=== PATIENT | female | born 1990 | race Caucasian/White ===

== ENCOUNTER 2016-06-08 09:07 | Inpatient (IN) | payer MEDICAID ==
--- NOTE | 2016-06-07 13:36 | PCM.PREANE ---
<Ari Liang - Last Filed: 06/07/16 13:34> Preanesthetic Assessment - ANESTHESIA/TRANSFUSION/FAMILY HX Anesthesia/Transfusion History: No Prior Transfusion(s), Prior Anesthesia (c section without problems under spinal. Teeth pulled under MAC. No history of GA. No famiy issues with GA.) Family History of Anesthesia Reaction: No - REVIEW OF SYSTEMS Constitutional: Reports: no symptoms CERTIFIED NURSE MIDWIFE: Reports: no symptoms Respiratory: Reports: no symptoms Cardiovascular: Reports: no symptoms GI: Reports: no symptoms Other: Reports: none - PHYSICAL ASSESSMENT Height: 5 ft 6 in Weight: 251 lb ASA Class: 2 - LAB Values: Laboratory Last Values WBC 8.50 K/uL (4.0-11.0) 06/08/16 09:31 RBC 4.47 M/uL (4.30-5.90) 06/08/16 09:31 Hgb 12.9 g/dL (12.0-16.0) 06/08/16 09:31 Hct 39.6 % (36.0-46.0) 06/08/16 09:31 MCV 88.6 fL (80.0-98.0) 06/08/16 09:31 MCH 28.9 pg (27.0-32.0) 06/08/16 09:31 MCHC 32.6 g/dL (31.0-37.0) 06/08/16 09:31 RDW Std Deviation 45.3 fl (28.0-62.0) 06/08/16 09:31 RDW Coeff of Omari 14 % (11.0-15.0) 06/08/16 09:31 Plt Count 179 K/uL (150-400) 06/08/16 09:31 MPV 11.80 fL (7.40-12.00) 06/08/16 09:31 Nucleated RBC % 0.0 /100WBC 06/08/16 09:31 Nucleated RBCs # 0 K/uL 06/08/16 09:31 Blood Type A POSITIVE 06/08/16 09:31 Antibody Screen NEGATIVE 06/08/16 09:31 - ALLERGIES Allergies/Adverse Reactions: Allergies Allergy/AdvReac Type Severity Reaction Status Date / Time amoxicillin Allergy Rash Verified 09/02/15 11:05 - ANESTHESIA PLAN Anesthesia Type Planned: general anesthesia, spinal - ACKNOWLEDGEMENTS Pt an appropriate candidate for the planned anesthesia: Yes Alternatives and risks of anesthesia discussed w pt/guardian: Yes Pt/Guardian understands and agree with anesthesia plan: Yes PreAnesthesia Questionnaire HEENT History: Reports: Other (see below) Other HEENT History: wears glasses/contacts Cardiovascular History: Reports: None Other Cardiovascular History: HX of "ENLARGED HEART AND FLUID ON LUNG" with previous Respiratory History: Reports: None Gastrointestinal History: Reports: GERD, Other (see below) Other Gastrointestinal History: occasional heartburn with Genitourinary History: Reports: None STUDENT SPECIALIST History: Reports: LMP (Approximate): Other OB/BYN History: & D/C Musculoskeletal History: Reports: Fracture Other Musculoskeletal History: hx of fx toe Neurological History: Reports: None Psychiatric History: Reports: None Endocrine/Metabolic History: Reports: Obesity/BMI 30+ Hematologic History: Reports: None Immunologic History: Reports: None Oncologic (Cancer) History: Reports: None Dermatologic History: Reports: None - Infectious Disease History Infectious Disease History: Reports: None - Past Surgical History Head Surgeries/Procedures: Reports: None HEENT Surgical History: Reports: Myringotomy w tube(s), Oral surgery Cardiovascular Surgical History: Reports: None Respiratory Surgical History: Reports: None GI Surgical History: Reports: None Female Surgical History: Reports: section (Hx of cardiomegaly and bilateral plueral effusions following previous c -section), D&C Endocrine Surgical History: Reports: None Neurological Surgical History: Reports: None Musculoskeletal Surgical History: Reports: None Oncologic Surgical History: Reports: None - SUBSTANCE USE Smoking Status *Q: Former Smoker Tobacco Use Within Last Twelve Months: No Second Hand Smoke Exposure: Yes Days Per Week of Alcohol Use: 0 Recreational Drug Use History: No - HOME MEDS Home Medications: Home Meds Vit W-Ca,Fe,FA(<1 mg) [ Vitamins] 1 tab PO DAILY 06/03/16 [ History] - CURRENT (IN HOUSE) MEDS Current Meds: Current Medications Citric Acid/Sodium Citrate (Bicitra Solution) 30 ml PO .ONCE NISSA Last Admin: 06/08/16 10:18 Dose: 30 ml Lactated Ringer's (Ringers, Lactated) 1,000 mls @ 500 mls/hr IV .BOLUS NISSA Last Admin: 06/08/16 11:15 Dose: 500 mls/hr Sodium Chloride (Saline Flush) 10 ml FLUSH ASDIRECTED PRN PRN Reason: Keep Vein Open Sodium Chloride (Saline Flush) 2.5 ml FLUSH ASDIRECTED PRN PRN Reason: Keep Vein Open Discontinued Medications Cefazolin Sodium/Dextrose 2 gm (/ Premix) 50 mls @ 100 mls/hr IV ONETIME ONE Stop: 06/08/16 05:29 Morphine Sulfate (Duramorph Pf) Confirm Administered Dose 10 mg .ROUTE .STK-MED ONE Stop: 06/08/16 08:50 Oxytocin (Pitocin) Confirm Administered Dose 20 unit .ROUTE .STK-MED ONE Stop: 06/08/16 08:50 <Rehana Connors - Last Filed: 06/08/16 11:41> Preanesthetic Assessment - ANESTHESIA/TRANSFUSION/FAMILY HX Anesthesia/Transfusion History: No Prior Transfusion(s), Prior Anesthesia Type of Anesthesia Reaction: Reports: Other (see below) (Pt reports having cardiomegaly and bilateral pleural effusions s/p section. Treated with Lasix and resolved. No further symptoms or workup.) Family History of Anesthesia Reaction: No - REVIEW OF SYSTEMS Constitutional: Reports: no symptoms CERTIFIED NURSE MIDWIFE: Reports: no symptoms Respiratory: Reports: no symptoms Cardiovascular: Reports: no symptoms GI: Reports: no symptoms Other: Reports: none - PHYSICAL ASSESSMENT NPO Status Date: 06/07/16 NPO Status Time: 23:00 ASA Class: 2 Mental Status: alert & oriented x3 Airway Class: Mallampati = 2 Dentition: Reports: normal dentition Thyro-Mental Finger Breadths: 3 Mouth Opening Finger Breadths: 3 ROM/Head Extension: full Respiratory Status: lungs clear to auscultation bilaterally Cardiovascular Status: regular rate & rhythm, normal S1, S2, no murmur, blood pressure WNL - BLOOD Blood Available: Yes Product(s) Available: PRBC - ANESTHESIA PLAN Anesthesia Type Planned: general anesthesia, spinal - ACKNOWLEDGEMENTS Pt an appropriate candidate for the planned anesthesia: Yes Alternatives and risks of anesthesia discussed w pt/guardian: Yes Pt/Guardian understands and agree with anesthesia plan: Yes PreAnesthesia Questionnaire Cardiovascular History: Reports: Heart Failure (with previous pregnancey and c section) <Bin Buchanan - Last Filed: 06/08/16 11:59> Preanesthetic Assessment - ANESTHESIA/TRANSFUSION/FAMILY HX Anesthesia/Transfusion History: No Prior Transfusion(s), Prior Anesthesia Type of Anesthesia Reaction: Reports: Other (see below) Family History of Anesthesia Reaction: No - REVIEW OF SYSTEMS Constitutional: Reports: no symptoms CERTIFIED NURSE MIDWIFE: Reports: no symptoms Respiratory: Reports: no symptoms Cardiovascular: Reports: no symptoms (episode of post delivery (prior 5 yr ago) cardiopulmonary episode resolved with lasix tx) GI: Reports: no symptoms Other: Reports: none - PHYSICAL ASSESSMENT ASA Class: 2 Mental Status: alert & oriented x3 Airway Class: Mallampati = 2 Dentition: Reports: normal dentition - BLOOD Blood Available: Yes Product(s) Available: PRBC - ANESTHESIA PLAN Medication Ordered: Antacids (treated on arrival today and now preop) Anesthesia Type Planned: spinal - ACKNOWLEDGEMENTS Pt an appropriate candidate for the planned anesthesia: Yes Alternatives and risks of anesthesia discussed w pt/guardian: Yes Pt/Guardian understands and agree with anesthesia plan: Yes
[~2016-06-08 09:07] MED LIST: Citric Acid/Sodium Citrate Solution 30 ML Cup PO SCH; Morphine PF 10 MG/10 ML SDV ONE; Oxytocin 10 Units/1 ML SDV ONE; Sodium Chloride 0.9% 10 ML Syringe FLUSH PRN; Sodium Chloride 0.9% 2.5 ML Syringe FLUSH PRN; ceFAZolin 2 GM in Premix Bag 1 BAG IV ONE
[2016-06-08] MEDS: Lactated Ringers 1,000 ML IV SCH ×2 (09:33→11:15)
[2016-06-08] MEDS ORDERED: Phenylephrine/Normal Saline 100 MCG/ML 10 ML Syringe ONE (12:11)
[2016-06-08] MEDS ORDERED: ePHEDrine 50 MG/ML SDV ONE (12:11)
[2016-06-08] MEDS ORDERED: Phenylephrine 1% 10 MG/ML SDV ONE (12:11)
[2016-06-08] MEDS ORDERED: Ondansetron 4 MG/2 ML SDV ONE (12:39)
[2016-06-08] MEDS ORDERED: diphenhydrAMINE 50 MG/ML SDV IVPUSH PRN ×2 (12:41→12:54)
[2016-06-08] MEDS ORDERED: Nalbuphine 10 MG/1 ML Vial IVPUSH PRN (12:41)
[2016-06-08] MEDS ORDERED: Naloxone 0.4 MG/ML Syringe IVPUSH PRN (12:41)
[2016-06-08] MEDS ORDERED: fentaNYL 100 MCG/2 ML SDV IVPUSH PRN (12:42)
[2016-06-08] MEDS ORDERED: Octyl 2-Cyanoacrylate 1 Tube ONE (12:46)
[2016-06-08] MEDS ORDERED: Simethicone 80 MG Tab.Chew PO PRN (12:54)
[2016-06-08] MEDS ORDERED: Bisacodyl 10 MG Supp RECTAL PRN (12:54)
[2016-06-08] MEDS ORDERED: Aluminum Hydroxide/Magnesium Hydroxide/Simethicone Susp 30 ML Cup PO PRN (12:54)
[2016-06-08] MEDS ORDERED: Lanolin 100% Cream 7 GM Tube TOP PRN (12:54)
[2016-06-08] MEDS ORDERED: Ondansetron 4 MG/2 ML SDV IV PRN (12:54)
[2016-06-08] MEDS ORDERED: Lactated Ringers 1,000 ML IV SCH (13:00)
--- NOTE | 2016-06-08 13:04 | PCM.OPNOTE ---
- General Post-Op/Procedure Note Date of Surgery/Procedure: 06/08/16 Operative Procedure(s): Repeat LTCS Findings: Viable male APGARS 7, 9 weight 4010 gm. Intact placenta with 3V cord. Nuchal cord x 2. Pre Op Diagnosis: 39 week IUP. Previous c section--desires repeat Post-Op Diagnosis: same Anesthesia Technique: Spinal Primary Surgeon: Maura Davis Fluid Replacement, Intraop: 1,000 EBL in mLs: 700 Condition: Stable Free Text/Narrative:: Dictation [id number]
[2016-06-08] MEDS: Ketorolac 30 MG/ML SDV IVPUSH SCH ×2 (13:18→18:44)
--- NOTE | 2016-06-08 13:29 | PCM.POSTAN ---
POST ANESTHESIA ASSESSMENT - MENTAL STATUS Mental Status: alert, oriented - RESPIRATORY Respiratory Status: respiratory rate WNL, airway patent, O2 saturation stable - CARDIOVASCULAR CV Status: pulse rate WNL, blood pressure stable - GASTROINTESTINAL GI Status: no symptoms - PAIN Pain Score: 0 - POST OP HYDRATION Hydration Status: adequate & stable
--- NOTE | 2016-06-08 20:12 | PCM48HPAN ---
Post Anesthesia Note - EVALUATION WITHIN 48HRS OF ANESTHETIC Vital Signs in Normal Range: Yes Patient Participated in Evaluation: Yes Respiratory Function Stable: Yes Airway Patent: Yes Cardiovascular Function Stable: Yes (Pt has diastolic murmur not noticed earlier today. Will monitor.) Hydration Status Stable: Yes Pain Control Satisfactory: Yes Nausea and Vomiting Control Satisfactory: Yes Mental Status Recovered: Yes - COMMENTS/OBSERVATIONS Free Text/Narrative:: Pt has full return of sensation and motor movement to lower extremities. Denies dyspnea. Lung sounds clear. Heart tones with diastolic murmur not heard this morning on exam. Will monitor for signs of heart failure due to course of post op events with prior c section. Nursing staff alerted to finding and they also report her urine output is slightly low. Pt also reports having itching from duramorph requiring RX treatment which has been effective.
[2016-06-08] MEDS: Docusate Sodium 100 MG Cap PO SCH (20:35)
--- NOTE | 2016-06-08 21:52 | OR ---
SURGEON: Maura Davis M.D. DATE OF PROCEDURE: 06/08/2016 PREOPERATIVE DIAGNOSES: 1. Thirty-nine week intrauterine . 2. Previous section, desires repeat. POSTOPERATIVE DIAGNOSES: 1. Thirty-nine week intrauterine . 2. Previous section, desires repeat. PROCEDURE: Repeat low transverse section. ESTIMATED BLOOD LOSS: 700 mL. FLUIDS: 1000 mL crystalloid. COMPLICATIONS: None known. ANESTHESIA: Spinal. FINDINGS: Viable male Score 7 at 1 minute, 9 at 5 minute. Weight of 4010 g. Intact placenta, 3-vessel cord. Normal appearing pelvis. Nuchal cord x2 reduced manually. DISPOSITION: The patient to PACU, stable. Infant to nursery. PROCEDURE IN DETAIL: Theresa is a 25-year-old G4, P0-1-0-2-1, at 39 weeks gestation, presents this morning for scheduled repeat delivery. Risks of procedure were discussed. Proper consent obtained. The patient was taken to the operating room, where she underwent spinal anesthesia. She was then placed in dorsal supine position with leftward tilt. SCDs to lower extremities. Graves to gravity. She was prepped and draped in the usual sterile fashion. Time-out was performed. The patient received prophylactic antibiotic and she was prepped and draped in a sterile fashion. Anesthesia was tested, found to be adequate. Previous Pfannenstiel scar was now excised. Subcutaneous tissue was incised down the level of the rectus fascia, which was incised in the midline and lateralized on either side sharply and bluntly. The superior aspect of fascia was tented up, dissected sharply and bluntly from underlying muscle. In a similar aspect, performed with the inferior aspect of the fascia. Rectus muscles were in midline. The peritoneum was tented upward and entered sharply. Peritoneum was now lateralized bluntly. Uterine position and position palpated. Self-retaining tractor now gently placed. Uterovesical reflection was visualized. Bladder flap created sharply and bluntly. Bladder was mobilized away from lower uterine segment. Low transverse hysterotomy was now performed. Uterine cavity was entered with the blunt end of the scalpel. The uterine hysterotomy was now lateralized bluntly. The artificial rupture of membranes was performed. Clear fluid was returned. The 's head was flexed and fundal pressure was applied. The 's head was delivered followed by anterior shoulder, posterior shoulder, remainder of the body without difficulty. The infant's oropharynx and nares bulb suctioned. Cord clamped x2 and cut after reducing a nuchal cord x2 manually. Infant was handed off to attending nursing staff. Cord arterial, cord venous, cord blood samples obtained. The placenta was now delivered. Uterine cavity was cleared of all clot and debris. Hysterotomy was repaired using 0 Vicryl in continuous running locked fashion, followed by a re-imbricating layer. There was an area oozing midline was replicated with [id number] suture. Hemostasis thereafter evident. Posterior aspect of the uterus inspected, no defects or hematomas found be forming. The region was well irrigated, suction dried. Tubes also appeared normal. Hysterotomy once again was found to be hemostatic. The self-retaining tractor now gently removed. Bladder blade was placed. Hysterotomy once again inspected, found to be hemostatic. The rectus muscles were now reapproximated using 0 Vicryl in inverted mattress suture technique. Anterior aspect of the muscle, posterior aspect the fascia closely inspected. Any areas of oozing were cauterized. The rectus fascia was reapproximated using 0 Vicryl in continuous running fashion beginning laterally on either side meeting in the midline. Subcutaneous tissue was well irrigated suction dried. Any areas of bleeding were cauterized. Skin edges reapproximated using 3-0 Vicryl in a John needle in subcuticular fashion, followed by Dermabond on the incision. Sponge, instrument, and needle counts were correct x3. The patient tolerated the procedure well overall. She will go to PACU in stable condition. Infant to nursery. XAVIER / TERESA /[id number]
[2016-06-09] MEDS: Ketorolac 30 MG/ML SDV IVPUSH SCH ×3 (00:03→12:35)
--- NOTE | 2016-06-09 08:45 | PCM.PNPP ---
- General Info Date of Service: 06/09/16 Functional Status: Reports: pain controlled, tolerating diet, ambulating, urinating - Review of Systems General: Denies: fever, weakness Pulmonary: Denies: shortness of breath Cardiovascular: Denies: chest pain, palpitations, lightheadedness Gastrointestinal: Denies: Nausea, Vomiting Genitourinary: Denies: flank pain Psychiatric: Reports: no symptoms - General Info Date of Service: 06/09/16 - Patient Data Vital Signs - most recent: Last Vital Signs Temp 36.9 C 06/09/16 04:00 Pulse 90 06/09/16 04:00 Resp 18 06/09/16 06:00 BP 120/68 06/09/16 04:00 Pulse Ox 96 06/09/16 06:00 Weight - most recent: 113.852 kg I&O - last 24 hours: Intake & Output 06/08/16 06/09/16 06/09/16 22:59 06:59 14:59 Intake Total 900 600 Output Total 150 600 Balance 750 0 Lab Results - last 24 hrs: Laboratory Results - last 24 hr 06/08/16 06/08/16 06/09/16 Range/Units 09:31 09:31 05:03 WBC 8.50 (4.0-11.0) K/uL RBC 4.47 (4.30-5.90) M/uL Hgb 12.9 11.0 L (12.0-16.0) g/dL Hct 39.6 33.3 L (36.0-46.0) % MCV 88.6 (80.0-98.0) fL MCH 28.9 (27.0-32.0) pg MCHC 32.6 (31.0-37.0) g/dL RDW Std Deviation 45.3 (28.0-62.0) fl RDW Coeff of Omari 14 (11.0-15.0) % Plt Count 179 (150-400) K/uL MPV 11.80 (7.40-12.00) fL Nucleated RBC % 0.0 /100WBC Nucleated RBCs # 0 K/uL Blood Type A POSITIVE Antibody Screen NEGATIVE Med Orders - Current: Current Medications Al Hydroxide/Mg Hydroxide (Mag-Al Plus) 30 ml PO Q8H PRN PRN Reason: Heartburn Bisacodyl (Dulcolax) 10 mg RECTAL .ONCE PRN PRN Reason: Constipation Citric Acid/Sodium Citrate (Bicitra Solution) 30 ml PO .ONCE [facility] Last Admin: 06/08/16 10:18 Dose: 30 ml Diphenhydramine HCl (Benadryl) 25 mg IVPUSH Q4H PRN PRN Reason: Itching Stop: 06/09/16 12:42 Last Admin: 06/08/16 15:00 Dose: 25 mg Diphenhydramine HCl (Benadryl) 25 mg IVPUSH Q6H PRN PRN Reason: Itching or Nausea Docusate Sodium (Colace) 100 mg PO BID [facility] Last Admin: 06/08/16 20:35 Dose: 100 mg Emollient Ointment (Lansinoh Hpa) 0 gm TOP ASDIRECTED PRN PRN Reason: Sore Nipples Fentanyl (Sublimaze) 25 - 50 mcg IVPUSH Q30M PRN PRN Reason: Pain Lactated Ringer's (Ringers, Lactated) 1,000 mls @ 500 mls/hr IV .BOLUS [facility] Last Admin: 06/08/16 11:15 Dose: 500 mls/hr Lactated Ringer's (Ringers, Lactated) 1,000 mls @ 125 mls/hr IV ASDIRECTED [facility] Last Admin: 06/08/16 16:15 Dose: 125 mls/hr Ibuprofen (Motrin) 800 mg PO Q8H PRN PRN Reason: mild pain or fever Ketorolac Tromethamine (Toradol) 30 mg IVPUSH Q6H [facility] Stop: 06/09/16 13:01 Last Admin: 06/09/16 06:03 Dose: 30 mg Nalbuphine HCl (Nubain) 5 mg IVPUSH Q3H PRN PRN Reason: Pruritis Stop: 06/09/16 12:42 Last Admin: 06/08/16 18:43 Dose: 5 mg Naloxone HCl (Narcan) 0.1 mg IVPUSH ONETIME PRN PRN Reason: Other Stop: 06/09/16 12:42 Ondansetron HCl (Zofran) 4 mg IV Q4H PRN PRN Reason: Nausea/Vomiting Oxycodone/Acetaminophen (Percocet 325-5 Mg) 1 - 2 tab PO Q6H PRN PRN Reason: Pain Stop: 03/01/17 14:00 Oxycodone/Acetaminophen (Percocet 325-5 Mg) 1 tab PO Q4H PRN PRN Reason: Pain (moderate 4-6) Oxycodone/Acetaminophen (Percocet 325-5 Mg) 2 tab PO Q4H PRN PRN Reason: Pain (moderate 4-6) Simethicone (Simethicone) 80 mg PO Q4H PRN PRN Reason: Gas Sodium Chloride (Saline Flush) 10 ml FLUSH ASDIRECTED PRN PRN Reason: Keep Vein Open Sodium Chloride (Saline Flush) 2.5 ml FLUSH ASDIRECTED PRN PRN Reason: Keep Vein Open Discontinued Medications Ephedrine Sulfate (Ephedrine Sulfate) Confirm Administered Dose 50 mg .ROUTE .STK-MED ONE Stop: 06/08/16 12:12 Cefazolin Sodium/Dextrose 2 gm (/ Premix) 50 mls @ 100 mls/hr IV ONETIME ONE Stop: 06/08/16 05:29 Morphine Sulfate (Duramorph Pf) Confirm Administered Dose 10 mg .ROUTE .STK-MED ONE Stop: 06/08/16 08:50 Octyl Cyanoacrylate (Dermabond Advance) Confirm Administered Dose 1 applic .ROUTE .STK-MED ONE Stop: 06/08/16 12:47 Ondansetron HCl (Zofran) Confirm Administered Dose 4 mg .ROUTE .STK-MED ONE Stop: 06/08/16 12:40 Oxytocin (Pitocin) Confirm Administered Dose 20 unit .ROUTE .STK-MED ONE Stop: 06/08/16 08:50 Phenylephrine HCl (Phenylephrine In Ns 100 Mcg/Ml) Confirm Administered Dose 1 mg .ROUTE .STK-MED ONE Stop: 06/08/16 12:12 Phenylephrine HCl (Alexis-Synephrine) Confirm Administered Dose 10 mg .ROUTE .STK- MED ONE Stop: 06/08/16 12:12 - Interaction Support Person: Significant Other - Recovery Exam Fundal Tone: Firm Fundal Level: 1 Fingerbreadths Below Umbilicus Fundal Placement: Midline Lochia Amount: Scant Lochia Color: Rubra/Red Perineum Description: Intact, Minimal Bruising/Swelling Episiotomy/Laceration: None Bladder Status: Indwelling Catheter in Place Urinary Elimination: Indwelling Catheter - Exam General: alert, oriented Lungs: Normal respiratory effort Cardiovascular: regular rate, regular rhythm Abdomen: bowel sounds present, soft. No: CVA tenderness Extremities: no calf tenderness Skin: warm, dry, intact Psy/Mental Status: alert, normal affect - Problem List & Annotations (1) delivery delivered SNOMED Code(s): 762176813 Code(s): O82 - ENCOUNTER FOR DELIVERY WITHOUT INDICATION Status: Acute Current Visit: Yes - Problem List Review Problem List Initiated/Reviewed/Updated: Yes - My Orders Last 24 Hours: My Active Orders 06/08/16 12:54 Patient Status [ADT] Routine Ambulate [RC] PER UNIT ROUTINE Antiembolic Devices [RC] PER UNIT ROUTINE Communication Order [RC] PER UNIT ROUTINE Communication Order [RC] PER UNIT ROUTINE Communication Order [RC] Per Unit Routine May Shower [RC] ASDIRECTED Notify Provider Intake and Out [RC] ASDIRECTED Notify Provider Vital Signs [RC] ASDIRECTED RT Incentive Spirometry [RC] Q2HWA Acetaminophen/oxyCODONE [Percocet 325-5 MG] 1 tab PO Q4H PRN Acetaminophen/oxyCODONE [Percocet 325-5 MG] 2 tab PO Q4H PRN Alum Hydrox/Mag Hydrox/Simeth [Mag-Al Plus] 30 ml PO Q8H PRN Bisacodyl [Dulcolax] 10 mg RECTAL .ONCE PRN Lanolin [Lansinoh HPA] See Dose Instructions TOP ASDIRECTED PRN Ondansetron [Zofran] 4 mg IV Q4H PRN Simethicone 80 mg PO Q4H PRN diphenhydrAMINE [Benadryl] 25 mg IVPUSH Q6H PRN Abdominal Binder [OM.PC] Routine Assess Lochia [WOMSER] Per Unit Routine Assess Uterine Involution [WOMSER] Per Unit Routine Breast Pump [WOMSER] Per Unit Routine Heat Therapy [OM.PC] Routine Ice Therapy [OM.PC] Routine Peripheral IV Discontinue [OM.PC] Routine Sequential Compression Device [OM.PC] Per Unit Routine 06/08/16 13:00 Ketorolac [Toradol] 30 mg IVPUSH Q6H Lactated Ringers [Ringers, Lactated] 1,000 ml IV ASDIRECTED 06/08/16 21:00 Docusate Sodium [Colace] 100 mg PO BID 06/08/16 Lunch Regular Diet [DIET] 06/09/16 20:00 Ibuprofen [Motrin] 800 mg PO Q8H PRN - Assessment Assessment:: POD 1 status post Repeat LTCS - Plan Plan:: patient is feeling well overall, has ambulated and voided. Lochia is dissipating. She denies chest pain or shortness of breath. Continue postoperative cares.
[2016-06-09] MEDS: Docusate Sodium 100 MG Cap PO SCH ×2 (09:27→20:14)
[2016-06-09] MEDS: Acetaminophen/oxyCODONE 325-5 MG Tab PO PRN ×4 (09:27→20:13)
[2016-06-09] MEDS: Ibuprofen 800 MG Tab PO PRN (18:25)
[2016-06-10] MEDS: Acetaminophen/oxyCODONE 325-5 MG Tab PO PRN ×3 (00:20→13:25)
[2016-06-10] MEDS: Ibuprofen 800 MG Tab PO PRN ×2 (05:48→12:07)
[2016-06-10 08:21] VITALS: BP 125/65
--- NOTE | 2016-06-10 08:43 | PCM.PNPP ---
- General Info Date of Service: 06/10/16 Functional Status: Reports: pain controlled, tolerating diet, ambulating, urinating - Review of Systems General: Denies: fever Pulmonary: Denies: shortness of breath Cardiovascular: Denies: chest pain, palpitations, lightheadedness Gastrointestinal: Denies: Nausea, Vomiting Genitourinary: Denies: flank pain Psychiatric: Reports: no symptoms - General Info Date of Service: 06/10/16 - Patient Data Vital Signs - most recent: Last Vital Signs Temp 37.1 C 06/10/16 08:00 Pulse 78 06/10/16 08:00 Resp 14 06/10/16 08:00 BP 125/65 06/10/16 08:00 Pulse Ox 99 06/10/16 08:00 Weight - most recent: 113.852 kg Med Orders - Current: Current Medications Al Hydroxide/Mg Hydroxide (Mag-Al Plus) 30 ml PO Q8H PRN PRN Reason: Heartburn Bisacodyl (Dulcolax) 10 mg RECTAL .ONCE PRN PRN Reason: Constipation Citric Acid/Sodium Citrate (Bicitra Solution) 30 ml PO .ONCE [facility] Last Admin: 06/08/16 10:18 Dose: 30 ml Diphenhydramine HCl (Benadryl) 25 mg IVPUSH Q6H PRN PRN Reason: Itching or Nausea Docusate Sodium (Colace) 100 mg PO BID [facility] Last Admin: 06/09/16 20:14 Dose: 100 mg Emollient Ointment (Lansinoh Hpa) 0 gm TOP ASDIRECTED PRN PRN Reason: Sore Nipples Fentanyl (Sublimaze) 25 - 50 mcg IVPUSH Q30M PRN PRN Reason: Pain Lactated Ringer's (Ringers, Lactated) 1,000 mls @ 500 mls/hr IV .BOLUS [facility] Last Admin: 06/08/16 11:15 Dose: 500 mls/hr Lactated Ringer's (Ringers, Lactated) 1,000 mls @ 125 mls/hr IV ASDIRECTED [facility] Last Admin: 06/08/16 16:15 Dose: 125 mls/hr Ibuprofen (Motrin) 800 mg PO Q8H PRN PRN Reason: mild pain or fever Last Admin: 06/10/16 05:48 Dose: 800 mg Ondansetron HCl (Zofran) 4 mg IV Q4H PRN PRN Reason: Nausea/Vomiting Oxycodone/Acetaminophen (Percocet 325-5 Mg) 1 - 2 tab PO Q6H PRN PRN Reason: Pain Stop: 06/10/16 14:00 Last Admin: 06/09/16 09:27 Dose: 2 tab Oxycodone/Acetaminophen (Percocet 325-5 Mg) 1 tab PO Q4H PRN PRN Reason: Pain (moderate 4-6) Last Admin: 06/09/16 20:13 Dose: 1 tab Oxycodone/Acetaminophen (Percocet 325-5 Mg) 2 tab PO Q4H PRN PRN Reason: Pain (moderate 4-6) Last Admin: 06/10/16 00:20 Dose: 2 tab Simethicone (Simethicone) 80 mg PO Q4H PRN PRN Reason: Gas Sodium Chloride (Saline Flush) 10 ml FLUSH ASDIRECTED PRN PRN Reason: Keep Vein Open Sodium Chloride (Saline Flush) 2.5 ml FLUSH ASDIRECTED PRN PRN Reason: Keep Vein Open Discontinued Medications Diphenhydramine HCl (Benadryl) 25 mg IVPUSH Q4H PRN PRN Reason: Itching Stop: 06/09/16 12:42 Last Admin: 06/08/16 15:00 Dose: 25 mg Ephedrine Sulfate (Ephedrine Sulfate) Confirm Administered Dose 50 mg .ROUTE .STK-MED ONE Stop: 06/08/16 12:12 Cefazolin Sodium/Dextrose 2 gm (/ Premix) 50 mls @ 100 mls/hr IV ONETIME ONE Stop: 06/08/16 05:29 Ketorolac Tromethamine (Toradol) 30 mg IVPUSH Q6H NISSA Stop: 06/09/16 13:01 Last Admin: 06/09/16 12:35 Dose: 30 mg Morphine Sulfate (Duramorph Pf) Confirm Administered Dose 10 mg .ROUTE .STK-MED ONE Stop: 06/08/16 08:50 Nalbuphine HCl (Nubain) 5 mg IVPUSH Q3H PRN PRN Reason: Pruritis Stop: 06/09/16 12:42 Last Admin: 06/08/16 18:43 Dose: 5 mg Naloxone HCl (Narcan) 0.1 mg IVPUSH ONETIME PRN PRN Reason: Other Stop: 06/09/16 12:42 Octyl Cyanoacrylate (Dermabond Advance) Confirm Administered Dose 1 applic .ROUTE .STK-MED ONE Stop: 06/08/16 12:47 Ondansetron HCl (Zofran) Confirm Administered Dose 4 mg .ROUTE .STK-MED ONE Stop: 06/08/16 12:40 Oxytocin (Pitocin) Confirm Administered Dose 20 unit .ROUTE .STK-MED ONE Stop: 06/08/16 08:50 Phenylephrine HCl (Phenylephrine In Ns 100 Mcg/Ml) Confirm Administered Dose 1 mg .ROUTE .STK-MED ONE Stop: 06/08/16 12:12 Phenylephrine HCl (Alexis-Synephrine) Confirm Administered Dose 10 mg .ROUTE .STK- MED ONE Stop: 06/08/16 12:12 - Interaction Support Person: Significant Other - Recovery Exam Fundal Tone: Firm Fundal Level: At Umbilicus Fundal Placement: Midline Lochia Amount: Scant Lochia Color: Rubra/Red Perineum Description: Intact, Minimal Bruising/Swelling Episiotomy/Laceration: None Bladder Status: Voiding Urinary Elimination: Voided - Exam General: alert, oriented Lungs: Normal respiratory effort Cardiovascular: regular rate, regular rhythm Abdomen: bowel sounds present, soft. No: rebound, guarding, CVA tenderness Extremities: no calf tenderness, edema (trace to 1+ pedal edema) Wound/Incisions: healing well, no drainage. No: erythema Psy/Mental Status: alert, normal affect - Problem List & Annotations (1) delivery delivered SNOMED Code(s): 599660058 Code(s): O82 - ENCOUNTER FOR DELIVERY WITHOUT INDICATION Status: Acute Current Visit: Yes - Problem List Review Problem List Initiated/Reviewed/Updated: Yes - My Orders Last 24 Hours: My Active Orders 06/09/16 20:00 Ibuprofen [Motrin] 800 mg PO Q8H PRN 06/10/16 08:40 Ready for Discharge [RC] PER UNIT ROUTINE - Assessment Assessment:: POD 2 status post Repeat LTCS - Plan Plan:: Vs remain stable. Patient is feeling well overall with minimal pedal swelling/ edema and no shortness of breath. Will send in some lasix in case swelling increases given events last . Patient would like to go home today. Discharge instructions reviewed. Infection and bleeding warnings reviewe. Follow up at [facility] 2 and 6 weeks. Discharge to home today.
[2016-06-10] MEDS: Docusate Sodium 100 MG Cap PO SCH (09:03)
== END 2016-06-10 13:35 | disposition home or self-care (01) | DRG 765 ==
LOC: MW.OB 09:07
PROVIDERS: ADMIT Obstetrics & Gynecology; ATTEND Obstetrics & Gynecology
PROC: 10D00Z1 Extraction of Products of Conception, Low, Open Approach (ICD-10-PCS; principal; 2016-06-08)
DX: O34.211 Maternal care for low transverse scar from previous cesarean delivery (principal); Z68.41 Body mass index [BMI] 40.0-44.9, adult; O99.214 Obesity complicating childbirth; E66.9 Obesity, unspecified; Z3A.39 39 weeks gestation of pregnancy; Z37.0 Single live birth
CPT/HCPCS: 01961; 36415; 59025; 85014; 85018; 85027; 86850; 86900; 86901; A9270-GY; J1200; J1885; J2270; J2300; J2370; J2405; J2590; J7120

== ENCOUNTER 2017-03-20 12:05 | Emergency (ER) | payer MEDICAID ==
[2017-03-20] MEDS ORDERED: Sodium Chloride 0.9% 1,000 ML IV ONE (12:28)
[2017-03-20] MEDS ORDERED: Sodium Chloride 0.9% 10 ML Syringe FLUSH PRN (12:28)
[2017-03-20] MEDS ORDERED: Sodium Chloride 0.9% 2.5 ML Syringe FLUSH PRN (12:28)
[2017-03-20] MEDS ORDERED: Ondansetron 4 MG/2 ML SDV IVPUSH ONE (12:48)
[2017-03-20] MEDS ORDERED: Morphine 2 MG/ML Syringe IVPUSH ONE (12:48)
[2017-03-20 13:11] LABS: CHLORIDE,CL 107 mmol/L (98-110); SODIUM,NA 140 mmol/L (136-146)
--- NOTE | 2017-03-20 13:15 | EDM.PDOC ---
ED HPI GENERAL MEDICAL PROBLEM - General Chief Complaint: Abdominal Pain Stated Complaint: ABDOMINAL PAIN/VOMITING Time Seen by Provider: 03/20/17 12:21 Source of Information: Reports: Patient History Limitations: Reports: No Limitations - History of Present Illness INITIAL COMMENTS - FREE TEXT/NARRATIVE: History of present illness: []Patient began having right lower abdominal and pelvic pain for 2 weeks that feel like period cramps. Patient states it was mild and she tolerated until 10: 30 this morning she had severe sharp pain while she was driving that made her pullover and vomit. She denies any vaginal bleeding, fevers, chills or diarrhea. Review of systems: As per history of present illness and below otherwise all systems reviewed and negative. Past medical history: As per history of present illness and as reviewed below otherwise noncontributory. Surgical history: As per history of present illness and as reviewed below otherwise noncontributory. Social history: No reported history of drug or alcohol abuse. Family history: As per history of present illness and as reviewed below otherwise noncontributory. Physical exam: General: Well developed, well nourished in NAD HEENT: Atraumatic, normocephalic, pupils reactive, negative for conjunctival pallor or scleral icterus, mucous membranes moist, throat clear, neck supple, nontender, trachea midline. Lungs: Clear to auscultation, breath sounds equal bilaterally, chest nontender. Heart: S1S2, regular, negative for clicks, rubs, or JVD. Abdomen: Soft, nondistended, nontender. Negative for masses or hepatosplenomegaly. Negative for costovertebral tenderness. Pelvis: Stable nontender. Genitourinary: Deferred. Rectal: Deferred. Extremities: Atraumatic, negative for cords or calf pain. Neurovascular unremarkable. Neuro: Awake, alert, oriented. Cranial nerves II through XII unremarkable. Cerebellum unremarkable. Motor and sensory unremarkable throughout. Exam nonfocal. Diagnostics: []CBC UA all negative pelvic ultrasound negative for ovarian cyst or bleeding. Therapeutics: []Zithromax Rocephin given Impression: []PID Plan: []Follow-up with [facility], Motrin and warm packs to abdomen return if symptoms worsen or change Definitive disposition and diagnosis as appropriate pending reevaluation and review of above. Right Lower Pelvic Pain Score (Numeric/FACES): 10 - Related Data Allergies Allergy/AdvReac Type Severity Reaction Status Date / Time amoxicillin Allergy Rash Verified 09/02/15 11:05 Home Meds: Home Meds . [No Known Home Meds] 03/20/17 [History] Past Medical History HEENT History: Reports: None Other HEENT History: wears glasses Cardiovascular History: Reports: Heart Failure (with previous pregnancey and c section) Other Cardiovascular History: HX OF "ENLARGED HEART AND FLUID ON LUNG" FROM 3 YEARS AGO, NO CURRENT TREATMENT Respiratory History: Reports: None Gastrointestinal History: Reports: None Other Gastrointestinal History: occasional heartburn Genitourinary History: Reports: None [employer] History: Reports: Other OB/BYN History: & D/C Musculoskeletal History: Reports: Fracture Other Musculoskeletal History: hx of fx toe Neurological History: Reports: None Psychiatric History: Reports: None Endocrine/Metabolic History: Reports: Obesity/BMI 30+ Hematologic History: Reports: None Immunologic History: Reports: None Oncologic (Cancer) History: Reports: None Dermatologic History: Reports: None - Infectious Disease History Infectious Disease History: Reports: None - Past Surgical History Head Surgeries/Procedures: Reports: None HEENT Surgical History: Reports: None Respiratory Surgical History: Reports: None Female Surgical History: Reports: Section, D&C Endocrine Surgical History: Reports: None Neurological Surgical History: Reports: None Musculoskeletal Surgical History: Reports: None Oncologic Surgical History: Reports: None Social & Family History - Family History Family Medical History: Noncontributory - Tobacco Use Smoking Status *Q: Never Smoker Years of Tobacco use: 5 Packs/Tins Daily: 0.2 Used Tobacco, but Quit: Yes Month Tobacco Last Used: june 2011 Second Hand Smoke Exposure: Yes - Caffeine Use Caffeine Use: Reports: Coffee, Energy Drinks - Alcohol Use Days Per Week of Alcohol Use: 0 - Recreational Drug Use Recreational Drug Use: No Drug Use in Last 12 Months: No ED ROS GENERAL - Review of Systems Review Of Systems: See Below (See history of present illness) ED EXAM, GI/ABD - Physical Exam Exam: See Below (See history of present illness) Course - Vital Signs Last Recorded V/S: Last Vital Signs Temp 97.5 F 03/20/17 12:12 Pulse 81 03/20/17 12:12 Resp 22 H 03/20/17 12:12 BP 110/66 03/20/17 12:12 Pulse Ox 99 03/20/17 12:12 - Orders/Labs/Meds Orders: Active Orders 24 hr Category Date Time Status Pelvis Non OB Comp [US] Stat Exams 03/20/17 13:24 Taken Sodium Chloride 0.9% [Saline Flush] Med 03/20/17 12:28 Active 10 ml FLUSH ASDIRECTED PRN Sodium Chloride 0.9% [Saline Flush] Med 03/20/17 12:28 Active 2.5 ml FLUSH ASDIRECTED PRN Saline Lock Insert [OM.PC] Stat Oth 03/20/17 12:27 Ordered Medication Orders Sodium Chloride (Saline Flush) 10 ml FLUSH ASDIRECTED PRN PRN Reason: Keep Vein Open Last Admin: 03/20/17 14:39 Dose: 10 ml Sodium Chloride (Saline Flush) 2.5 ml FLUSH ASDIRECTED PRN PRN Reason: Keep Vein Open Labs: Laboratory Tests 03/20/17 03/20/17 03/20/17 Range/Units 12:42 12:45 12:45 WBC 5.90 (4.0-11.0) K/uL RBC 4.84 (4.30-5.90) M/uL Hgb 14.5 (12.0-16.0) g/dL Hct 42.7 (36.0-46.0) % MCV 88.2 (80.0-98.0) fL MCH 30.0 (27.0-32.0) pg MCHC 34.0 (31.0-37.0) g/dL RDW Std Deviation 40.9 (28.0-62.0) fl RDW Coeff of Omari 13 (11.0-15.0) % Plt Count 249 (150-400) K/uL MPV 10.80 (7.40-12.00) fL Neut % (Auto) 59.4 (48.0-80.0) % Lymph % (Auto) 26.6 (16.0-40.0) % [place] % (Auto) 9.0 (0.0-15.0) % Eos % (Auto) 4.7 (0.0-7.0) % Baso % (Auto) 0.3 (0.0-1.5) % Neut # (Auto) 3.5 (1.4-5.7) K/uL Lymph # (Auto) 1.6 (0.6-2.4) K/uL [place] # (Auto) 0.5 (0.0-0.8) K/uL Eos # (Auto) 0.3 (0.0-0.7) K/uL Baso # (Auto) 0.0 (0.0-0.1) K/uL Nucleated RBC % 0.0 /100WBC Nucleated RBCs # 0 K/uL Sodium 140 (136-146) mmol/L Potassium 4.0 (3.5-5.1) mmol/L Chloride 107 (98-110) mmol/L Carbon Dioxide 25 (21-31) mmol/L BUN 12 (6.0-23.0) mg/dL Creatinine 0.8 (0.6-1.5) mg/dL Est Cr Clr Drug Dosing 99.76 mL/min Estimated GFR (MDRD) > 60.0 ml/min Glucose 86 (60-110) mg/dL Calcium 9.0 (8.8-10.8) mg/dL Total Bilirubin 0.5 (0.1-1.5) mg/dL AST 26 (5-40) IU/L ALT 30 (8-54) IU/L Alkaline Phosphatase 60 (40-150) Total Protein 7.6 (6.0-8.0) g/dL Albumin 4.1 (3.5-5.0) g/dL Globulin 3.5 (2.0-3.5) g/dL Albumin/Globulin Ratio 1.2 L (1.3-2.8) HCG, Quant mIU/mL Urine Color YELLOW Urine Appearance CLEAR Urine pH 6.0 (5.0-8.0) Ur Specific [place] 1.025 (1.001-1.035) Urine Protein NEGATIVE (NEGATIVE) mg/dL Urine Glucose (UA) NEGATIVE (NEGATIVE) mg/dL Urine Ketones NEGATIVE (NEGATIVE) mg/dL Urine Occult Blood MODERATE (NEGATIVE) Urine Nitrite NEGATIVE (NEGATIVE) Urine Bilirubin NEGATIVE (NEGATIVE) Urine Urobilinogen 0.2 (<2.0) EU/dL Ur Leukocyte Esterase NEGATIVE (NEGATIVE) Urine RBC 8-10 (0-2/HPF) Urine WBC 0-2 (0-5/HPF) Ur Epithelial Cells FEW (NONE-FEW) Urine Bacteria FEW (NEGATIVE) Urine Mucus LIGHT (NONE-MOD) 03/20/17 Range/Units 12:45 WBC (4.0-11.0) K/uL RBC (4.30-5.90) M/uL Hgb (12.0-16.0) g/dL Hct (36.0-46.0) % MCV (80.0-98.0) fL MCH (27.0-32.0) pg MCHC (31.0-37.0) g/dL RDW Std Deviation (28.0-62.0) fl RDW Coeff of Omari (11.0-15.0) % Plt Count (150-400) K/uL MPV (7.40-12.00) fL Neut % (Auto) (48.0-80.0) % Lymph % (Auto) (16.0-40.0) % [place] % (Auto) (0.0-15.0) % Eos % (Auto) (0.0-7.0) % Baso % (Auto) (0.0-1.5) % Neut # (Auto) (1.4-5.7) K/uL Lymph # (Auto) (0.6-2.4) K/uL [place] # (Auto) (0.0-0.8) K/uL Eos # (Auto) (0.0-0.7) K/uL Baso # (Auto) (0.0-0.1) K/uL Nucleated RBC % /100WBC Nucleated RBCs # K/uL Sodium (136-146) mmol/L Potassium (3.5-5.1) mmol/L Chloride (98-110) mmol/L Carbon Dioxide (21-31) mmol/L BUN (6.0-23.0) mg/dL Creatinine (0.6-1.5) mg/dL Est Cr Clr Drug Dosing mL/min Estimated GFR (MDRD) ml/min Glucose (60-110) mg/dL Calcium (8.8-10.8) mg/dL Total Bilirubin (0.1-1.5) mg/dL AST (5-40) IU/L ALT (8-54) IU/L Alkaline Phosphatase (40-150) Total Protein (6.0-8.0) g/dL Albumin (3.5-5.0) g/dL Globulin (2.0-3.5) g/dL Albumin/Globulin Ratio (1.3-2.8) HCG, Quant < 1.2 mIU/mL Urine Color Urine Appearance Urine pH (5.0-8.0) Ur Specific [place] (1.001-1.035) Urine Protein (NEGATIVE) mg/dL Urine Glucose (UA) (NEGATIVE) mg/dL Urine Ketones (NEGATIVE) mg/dL Urine Occult Blood (NEGATIVE) Urine Nitrite (NEGATIVE) Urine Bilirubin (NEGATIVE) Urine Urobilinogen (<2.0) EU/dL Ur Leukocyte Esterase (NEGATIVE) Urine RBC (0-2/HPF) Urine WBC (0-5/HPF) Ur Epithelial Cells (NONE-FEW) Urine Bacteria (NEGATIVE) Urine Mucus (NONE-MOD) Meds: Medications Generic Name Dose Route Start Last Admin Trade Name Freq PRN Reason Stop Dose Admin Sodium Chloride 10 ml 03/20/17 12:28 03/20/17 14:39 Saline Flush FLUSH 10 ml ASDIRECTED PRN Administration Keep Vein Open Sodium Chloride 2.5 ml 03/20/17 12:28 Saline Flush FLUSH ASDIRECTED PRN Keep Vein Open Discontinued Medications Generic Name Dose Route Start Last Admin Trade Name Freq PRN Reason Stop Dose Admin Sodium Chloride 1,000 mls @ 999 mls/hr 03/20/17 12:28 03/20/17 12:54 Normal Saline IV 03/20/17 13:28 999 mls/hr .Bolus ONE Administration Morphine Sulfate 4 mg 03/20/17 12:48 03/20/17 12:57 Morphine IVPUSH 03/20/17 12:49 4 mg ONETIME ONE Administration Morphine Sulfate 4 mg 03/20/17 14:20 03/20/17 14:38 Morphine IVPUSH 03/20/17 14:21 4 mg ONETIME ONE Administration Ondansetron HCl 4 mg 03/20/17 12:48 03/20/17 12:54 Zofran IVPUSH 03/20/17 12:49 4 mg ONETIME ONE Administration Departure - Departure Time of Disposition: 15:01 Disposition: Home, Self-Care 01 Condition: Good Clinical Impression: PID (acute pelvic inflammatory disease) - Discharge Information Referrals: PCP,None [Primary Care Provider] - Forms: ED Department Discharge Additional Instructions: The following information is given to patients seen in the emergency department who are being discharged to home. This information is to outline your options for follow-up care. We provide all patients seen in our emergency department with a follow-up referral. The need for follow-up, as well as the timing and circumstances, are variable depending upon the specifics of your emergency department visit. If you don't have a primary care physician on staff, we will provide you with a referral. We always advise you to contact your personal physician following an emergency department visit to inform them of the circumstance of the visit and for follow-up with them and/or the need for any referrals to a consulting specialist. The emergency department will also refer you to a specialist when appropriate. This referral assures that you have the opportunity for follow-up care with a specialist. All of these measure are taken in an effort to provide you with optimal care, which includes your follow-up. Under all circumstances we always encourage you to contact your private physician who remains a resource for coordinating your care. When calling for follow-up care, please make the office aware that this follow-up is from your recent emergency room visit. If for any reason you are refused follow-up, please contact the [facility] Emergency Department at and asked to speak to the emergency department charge nurse. Tr for pain warm packs to abdomen follow-up with [facility] next available return if symptoms worsen or change [facility] - [facility] [address] [place] [id number] - My Orders Last 24 Hours: My Active Orders 03/20/17 12:27 Saline Lock Insert [OM.PC] Stat 03/20/17 12:28 Sodium Chloride 0.9% [Saline Flush] 10 ml FLUSH ASDIRECTED PRN Sodium Chloride 0.9% [Saline Flush] 2.5 ml FLUSH ASDIRECTED PRN 03/20/17 13:24 Pelvis Non OB Comp [US] Stat - Assessment/Plan Last 24 Hours: My Active Orders 03/20/17 12:27 Saline Lock Insert [OM.PC] Stat 03/20/17 12:28 Sodium Chloride 0.9% [Saline Flush] 10 ml FLUSH ASDIRECTED PRN Sodium Chloride 0.9% [Saline Flush] 2.5 ml FLUSH ASDIRECTED PRN 03/20/17 13:24 Pelvis Non OB Comp [US] Stat
[2017-03-20] MEDS ORDERED: Morphine 4 MG/ML Syringe IVPUSH ONE (14:20)
[2017-03-20] MEDS ORDERED: cefTRIAXone 1 GM in Premix Bag 1 BAG IV ONE (15:00)
[2017-03-20] MEDS ORDERED: Azithromycin 250 MG Tab PO ONE (15:00)
[2017-03-20 16:04] VITALS: BP 112/65
--- NOTE | 2017-03-22 15:52 | US ---
EXAM DATE: 03/20/17 PATIENT'S AGE: 26 Patient: AMARA NASSAR Facility: [place], [place] Site . Site : 1990 Study: US Pelvis [id number] 2:11:01 PM Ordering Physician: Gino Lu Final Report: INDICATION: Right pelvic cramping. No bleeding or discharge. TECHNIQUE: Transabdominal and transvaginal scanning was performed. Transvaginal scanning was performed to optimally evaluate the endometrium and adnexa. Ovarian blood flow was evaluated with color-flow and pulsed Doppler. COMPARISON: None. FINDINGS: The uterus is normal in size and shape. The uterus measures 8.0 x 4.3 x 4.0 cm. No uterine mass is evident. The endometrial stripe is normal in thickness at 6 mm. The ovaries are normal in size and contain a number of follicles. The right ovary measures 2.6 x 2.3 x 2.2 cm and left 2.1 x 1.9 x 1.7 cm. Ovarian blood flow is demonstrated with color-flow and pulsed Doppler. No adnexal mass is evident. No free fluid is demonstrated. IMPRESSION: Negative pelvic ultrasound. Dictated by Art Villeda MD @ Mar 20 2017 2:34PM (Electronic Signature) Report Signed by Proxy. ANDRIY
== END 2017-03-20 16:04 | disposition home or self-care (01) ==
LOC: MW.ED 12:05
DX: N73.9 Female pelvic inflammatory disease, unspecified (principal); Z88.1 Allergy status to other antibiotic agents
CPT/HCPCS: 76856; 80053; 81001; 84702; 85025; 87491; 87591; 96361; 96365; 96375; 96376; 99284; A9270; J0696; J2270; J2405; J7040; 99283

== ENCOUNTER 2017-06-12 16:54 | Emergency (ER) | payer MEDICAID ==
[2017-06-12] MEDS ORDERED: Ondansetron 4 MG/2 ML SDV IVPUSH ONE (17:44)
[2017-06-12] MEDS ORDERED: Sodium Chloride 0.9% 1,000 ML IV ONE (17:50)
--- NOTE | 2017-06-12 17:56 | EDM.PDOC ---
ED HPI GENERAL MEDICAL PROBLEM - General Chief Complaint: Gastrointestinal Problem Stated Complaint: VOMITING/NAUSEA/BLEEDING [id number] Time Seen by Provider: 06/12/17 17:45 Source of Information: Reports: Patient History Limitations: Reports: No Limitations - History of Present Illness INITIAL COMMENTS - FREE TEXT/NARRATIVE: HISTORY AND PHYSICAL: History of present illness: [Pt comes to ER c/o nausea and vomiting which started suddenly at 0430 today. She is 9 weeks and following regularly with Chika Garcia at [facility]. Symptoms came on suddenly. No other family members are ill with similar symptoms. She hasn't had any fever but has had alternating feelings of chills and sweating. She denies pain in her chest and shortness of breath. No difficulty breathing. She has had greater than 12 episodes of diarrhea since the onset of her symptoms. The last was she's had some blood mixed in with her stool and mucus. No history of rectal bleeding or hemorrhoids. Mild abdominal cramping before episodes of diarrhea. No vaginal discharge or vaginal bleeding. She's not taken any medication for her symptoms. She has some nausea on and off through the morning which she attributes to morning sickness but has had no episodes of vomiting until today. ] Review of systems: As per history of present illness and below otherwise all systems reviewed and negative. Past medical history: As per history of present illness and as reviewed below otherwise noncontributory. Surgical history: As per history of present illness and as reviewed below otherwise noncontributory. Social history: No reported history of drug or alcohol abuse. Family history: As per history of present illness and as reviewed below otherwise noncontributory. Physical exam: HEENT: Atraumatic, normocephalic. Oral mucous membranes are pink and moist. Eyes are clear. Lungs: Clear to auscultation, breath sounds equal bilaterally. Heart: S1S2, regular rate and rhythm. Abdomen: Bowel sounds are normoactive throughout. Abdomen is soft, nondistended , nontender. Negative for masses, guarding or rebound. Negative for costovertebral tenderness. Pelvis: Stable nontender. Genitourinary: Deferred. Rectal: Deferred. Extremities: Atraumatic, no cyanosis or edema to feet or lower legs. Neurovascular unremarkable. Neuro: Awake, alert, oriented. Motor and sensory unremarkable throughout. Exam nonfocal. Diagnostics: [CBC, CMP, UA] Therapeutics: [1 liter NS, Zofran 4mg IV] Impression: [Nausea and vomiting] Plan: [Discussed with patient that her symptoms are likely viral in nature and are self-limiting. She improved significantly with fluids and Zofran and requests to be discharged to home. She states that she feels well enough that she is planning to eat some food when she gets home tonight. White blood cell count 7.7 , potassium 3.4. 1+ bacteria present in urinalysis and culture is pending. She is encouraged to follow-up with her OB early next week. Rx written for Zofran 4 mg ODT #10 sig one by mouth every 8 hours as needed for nausea and vomiting 0 refills. Strict return precautions are reviewed. She is in agreement with today' s discussion.] Definitive disposition and diagnosis as appropriate pending reevaluation and review of above. - Related Data Allergies Allergy/AdvReac Type Severity Reaction Status Date / Time amoxicillin Allergy Rash Verified 06/12/17 17:05 Home Meds: Home Meds Ondansetron [Zofran ODT] 4 mg PO Q6H PRN #10 tab.dis 06/12/17 [Rx] PNV95/Ferrous Fumarate/FA [ Tablet] 1 tab PO DAILY 06/12/17 [History] Past Medical History HEENT History: Reports: None Other HEENT History: wears glasses Cardiovascular History: Reports: Heart Failure Other Cardiovascular History: HX OF "ENLARGED HEART AND FLUID ON LUNG" FROM 3 YEARS AGO, NO CURRENT TREATMENT Respiratory History: Reports: None Gastrointestinal History: Reports: None Other Gastrointestinal History: occasional heartburn Genitourinary History: Reports: None [employer] History: Reports: Other OB/BYN History: & D/C Musculoskeletal History: Reports: Fracture Other Musculoskeletal History: hx of fx toe Neurological History: Reports: None Psychiatric History: Reports: None Endocrine/Metabolic History: Reports: Obesity/BMI 30+ Hematologic History: Reports: None Immunologic History: Reports: None Oncologic (Cancer) History: Reports: None Dermatologic History: Reports: None - Infectious Disease History Infectious Disease History: Reports: None - Past Surgical History Head Surgeries/Procedures: Reports: None HEENT Surgical History: Reports: None Respiratory Surgical History: Reports: None Female Surgical History: Reports: Section, D&C Endocrine Surgical History: Reports: None Neurological Surgical History: Reports: None Musculoskeletal Surgical History: Reports: None Oncologic Surgical History: Reports: None Social & Family History - Family History Family Medical History: Noncontributory - Tobacco Use Smoking Status *Q: Never Smoker Years of Tobacco use: 5 Packs/Tins Daily: 0.2 Used Tobacco, but Quit: Yes Month Tobacco Last Used: june 2011 Second Hand Smoke Exposure: Yes - Caffeine Use Caffeine Use: Reports: Coffee, Soda - Alcohol Use Days Per Week of Alcohol Use: 0 - Recreational Drug Use Recreational Drug Use: No Drug Use in Last 12 Months: No ED ROS GENERAL - Review of Systems Review Of Systems: ROS reveals no pertinent complaints other than HPI. ED EXAM, GI/ABD - Physical Exam Exam: See Below Course - Vital Signs Last Recorded V/S: Last Vital Signs Temp 98.7 F 06/12/17 17:02 Pulse 92 06/12/17 17:02 Resp 18 06/12/17 17:02 BP 121/86 06/12/17 17:02 Pulse Ox 98 06/12/17 17:02 - Orders/Labs/Meds Orders: Active Orders 24 hr Category Date Time Status CULTURE STOOL + CAMPY+SHIGATOX [RM] Stat Lab 06/12/17 17:51 Ordered Labs: Laboratory Tests 06/12/17 06/12/17 06/12/17 Range/Units 17:49 17:49 17:52 WBC 7.70 (4.0-11.0) K/uL RBC 4.44 (4.30-5.90) M/uL Hgb 13.4 (12.0-16.0) g/dL Hct 38.9 (36.0-46.0) % MCV 87.6 (80.0-98.0) fL MCH 30.2 (27.0-32.0) pg MCHC 34.4 (31.0-37.0) g/dL RDW Std Deviation 39.5 (28.0-62.0) fl RDW Coeff of Omari 13 (11.0-15.0) % Plt Count 264 (150-400) K/uL MPV 10.40 (7.40-12.00) fL Neut % (Auto) 74.3 (48.0-80.0) % Lymph % (Auto) 15.2 L (16.0-40.0) % [place] % (Auto) 9.2 (0.0-15.0) % Eos % (Auto) 1.2 (0.0-7.0) % Baso % (Auto) 0.1 (0.0-1.5) % Neut # (Auto) 5.7 (1.4-5.7) K/uL Lymph # (Auto) 1.2 (0.6-2.4) K/uL [place] # (Auto) 0.7 (0.0-0.8) K/uL Eos # (Auto) 0.1 (0.0-0.7) K/uL Baso # (Auto) 0.0 (0.0-0.1) K/uL Sodium 140 (136-145) mmol/L Potassium 3.4 L (3.5-5.1) mmol/L Chloride 106 (98-107) mmol/L Carbon Dioxide 26.3 (21.0-32.0) mmol/L BUN 9 (7.0-18.0) mg/dL Creatinine 0.7 (0.6-1.0) mg/dL Est Cr Clr Drug Dosing 114.01 mL/min Estimated GFR (MDRD) > 60.0 ml/min Glucose 103 (74-106) mg/dL Calcium 8.7 (8.5-10.1) mg/dL Total Bilirubin 0.3 (0.2-1.0) mg/dL AST 19 (15-37) U/L ALT 19 (14-63) U/L Alkaline Phosphatase 47 (46-116) U/L Total Protein 6.9 (6.4-8.2) g/dL Albumin 3.3 L (3.4-5.0) g/dL Globulin 3.6 H (2.0-3.5) g/dL Albumin/Globulin Ratio 0.9 L (1.3-2.8) Urine Color YELLOW Urine Appearance CLEAR Urine pH 6.0 (5.0-8.0) Ur Specific [place] >= 1.030 (1.001-1.035) Urine Protein NEGATIVE (NEGATIVE) mg/dL Urine Glucose (UA) NEGATIVE (NEGATIVE) mg/dL Urine Ketones NEGATIVE (NEGATIVE) mg/dL Urine Occult Blood NEGATIVE (NEGATIVE) Urine Nitrite NEGATIVE (NEGATIVE) Urine Bilirubin NEGATIVE (NEGATIVE) Urine Urobilinogen 0.2 (<2.0) EU/dL Ur Leukocyte Esterase NEGATIVE (NEGATIVE) Urine RBC NONE SEEN (0-2/HPF) Urine WBC 0-2 (0-5/HPF) Ur Epithelial Cells FEW (NONE-FEW) Urine Bacteria 1+ H (NEGATIVE) Urine Mucus LIGHT (NONE-MOD) Meds: Medications Discontinued Medications Generic Name Dose Route Start Last Admin Trade Name Freq PRN Reason Stop Dose Admin Sodium Chloride 1,000 mls @ 999 mls/hr 06/12/17 17:50 06/12/17 18:15 Normal Saline IV 06/12/17 18:50 999 mls/hr STAT ONE Administration Ondansetron HCl 4 mg 06/12/17 17:44 06/12/17 18:19 Zofran IVPUSH 06/12/17 17:45 4 mg ONETIME ONE Administration Departure - Departure Time of Disposition: 19:20 Disposition: Home, Self-Care 01 Condition: Good (Nausea and vomiting) Clinical Impression: Nausea and vomiting - Discharge Information Prescriptions: Ondansetron [Zofran ODT] 4 mg PO Q6H PRN #10 tab.dis PRN Reason: Nausea/Vomiting Instructions: Nausea and Vomiting, Adult Referrals: PCP,None [Primary Care Provider] - Forms: ED Department Discharge Additional Instructions: The following information is given to patients seen in the emergency department who are being discharged to home. This information is to outline your options for follow-up care. We provide all patients seen in our emergency department with a follow-up referral. The need for follow-up, as well as the timing and circumstances, are variable depending upon the specifics of your emergency department visit. If you don't have a primary care physician on staff, we will provide you with a referral. We always advise you to contact your personal physician following an emergency department visit to inform them of the circumstance of the visit and for follow-up with them and/or the need for any referrals to a consulting specialist. The emergency department will also refer you to a specialist when appropriate. This referral assures that you have the opportunity for follow-up care with a specialist. All of these measure are taken in an effort to provide you with optimal care, which includes your follow-up. Under all circumstances we always encourage you to contact your private physician who remains a resource for coordinating your care. When calling for follow-up care, please make the office aware that this follow-up is from your recent emergency room visit. If for any reason you are refused follow-up, please contact the [facility] emergency department at and asked to speak to the emergency department charge nurse. [facility] [address] [place] [id number] Follow-up with your OB at the clinic listed above early next week. Push fluids, get plenty of rest. Return to ER as needed as discussed. - My Orders Last 24 Hours: My Active Orders 06/12/17 17:51 CULTURE STOOL + CAMPY+SHIGATOX [RM] Stat - Assessment/Plan Last 24 Hours: My Active Orders 06/12/17 17:51 CULTURE STOOL + CAMPY+SHIGATOX [RM] Stat
[2017-06-12 18:41] LABS: CHLORIDE,CL 106 mmol/L (98-107); SODIUM,NA 140 mmol/L (136-145)
[2017-06-13 01:57] VITALS: BP 109/66
== END 2017-06-12 19:50 | disposition home or self-care (01) ==
LOC: MW.ED 16:54
DX: O21.9 Vomiting of pregnancy, unspecified (principal); O99.411 Diseases of the circulatory system complicating pregnancy, first trimester; I50.9 Heart failure, unspecified; Z87.891 Personal history of nicotine dependence; Z3A.09 9 weeks gestation of pregnancy
CPT/HCPCS: 36415; 80053; 81001; 85025; 96361; 96374; 99284; J2405; J7040; 99283

== ENCOUNTER 2017-10-09 03:23 | Emergency (ER) | payer MEDICAID | END 2017-10-09 03:45 | disposition left against medical advice (07) | LOC: MW.ED 03:23 | DX: Z53.21 Procedure and treatment not carried out due to patient leaving prior to being seen by health care provider (principal) ==

== ENCOUNTER 2017-10-09 04:43 | Emergency (ER) | payer MEDICAID ==
--- NOTE | 2017-10-09 04:48 | EDM.PDOC ---
ED HPI GENERAL MEDICAL PROBLEM - General Chief Complaint: Abdominal Pain Stated Complaint: ABDOMINAL PAIN Time Seen by Provider: 10/09/17 04:45 - History of Present Illness INITIAL COMMENTS - FREE TEXT/NARRATIVE: HISTORY AND PHYSICAL: History of present illness: The patient is a 27-year-old female who is a 3 para 2 at a proximally 25 -1/2 weeks [address] Garcia in the clinic and presents with complaints of epigastric pain that started several hours ago and did not improve after taking Tums. The patient says that with all of her pregnancies she 's had a lot of heartburn but this seemed to be more extreme and she did have one episode of vomiting which was not black or bloody. Her bowel movements have been normal without black or blood and she has no migration of the pain to the right of the left. She has no history of food intolerance and no GI history. She 's only had a and no other abdominal surgeries. She's had no fever chills chest pain or shortness of breath. She has no vaginal bleeding and when she initially presented to the ED she was sent to labor and delivery and was cleared from a standpoint. She has no lower abdominal cramping or urinary complaints and no flank pain. Patient did not eat anything unusual last evening. Review of systems: As per history of present illness and below otherwise all systems reviewed and negative. Past medical history: As per history of present illness and as reviewed below otherwise noncontributory. Surgical history: As per history of present illness and as reviewed below otherwise noncontributory. Social history: No reported history of drug or alcohol abuse. Family history: As per history of present illness and as reviewed below otherwise noncontributory. Physical exam: General: Well-developed well-nourished overweight female who is nontoxic but first to sit upright in bed. Vital signs are noted by me HEENT: Atraumatic, normocephalic, negative for conjunctival pallor or scleral icterus, mucous membranes moist, throat clear, neck supple, nontender, trachea midline. Lungs: Clear to auscultation, breath sounds equal bilaterally, chest nontender. Heart: S1S2, regular rhythm no overt murmurs Abdomen: Soft, nondistended, normoactive bowel sounds, there is tenderness with palpation in the epigastrium that does not localize right or left and does not extend beyond the epigastric region. When I palpate this area the patient says this exactly reproduces her pain. Negative for masses or hepatosplenomegaly. Negative for costovertebral tenderness. Pelvis: Stable nontender. Genitourinary: Deferred. Rectal: Deferred. Extremities: Atraumatic, negative for cords or calf pain. Neurovascular unremarkable. Neuro: Awake, alert, oriented. Cranial nerves II through XII unremarkable. Cerebellum unremarkable. Motor and sensory unremarkable throughout. Exam nonfocal. Diagnostics: CBC CMP amylase lipase H. pylori The patient had a UA done on labor and delivery Therapeutics: IV fluids Zofran Protonix morphine GI cocktail Patient is feeling improvement and she is aware of all testing results. I've advised her to talk to Chika Garcia on Wednesday for further care and evaluation and I will give her prescription for Carafate. I've also given her dietary restrictions and reasons to return to the ED Impression: Epigastric pain in third trimester Definitive disposition and diagnosis as appropriate pending reevaluation and review of above. Epigastric Pain Score (Numeric/FACES): 5 - Related Data Allergies Allergy/AdvReac Type Severity Reaction Status Date / Time amoxicillin Allergy Rash Verified 10/09/17 04:55 Home Meds: Home Meds Ondansetron [Zofran ODT] 4 mg PO Q6H PRN #10 tab.dis 06/12/17 [Rx] PNV95/Ferrous Fumarate/FA [ Tablet] 1 tab PO DAILY 06/12/17 [History] Past Medical History HEENT History: Reports: None Other HEENT History: wears glasses Cardiovascular History: Reports: Heart Failure Other Cardiovascular History: HX OF "ENLARGED HEART AND FLUID ON LUNG" FROM 3 YEARS AGO, NO CURRENT TREATMENT Respiratory History: Reports: None Gastrointestinal History: Reports: None Other Gastrointestinal History: occasional heartburn Genitourinary History: Reports: None [employer] History: Reports: Other [employer] History: & D/C Musculoskeletal History: Reports: Fracture Other Musculoskeletal History: hx of fx toe Neurological History: Reports: None Psychiatric History: Reports: None Endocrine/Metabolic History: Reports: Obesity/BMI 30+ Hematologic History: Reports: None Immunologic History: Reports: None Oncologic (Cancer) History: Reports: None Dermatologic History: Reports: None - Infectious Disease History Infectious Disease History: Reports: None - Past Surgical History Head Surgeries/Procedures: Reports: None HEENT Surgical History: Reports: None Respiratory Surgical History: Reports: None Female Surgical History: Reports: Section, D&C Endocrine Surgical History: Reports: None Neurological Surgical History: Reports: None Musculoskeletal Surgical History: Reports: None Oncologic Surgical History: Reports: None Social & Family History - Family History Family Medical History: Noncontributory - Caffeine Use Caffeine Use: Reports: Coffee, Soda ED ROS GENERAL - Review of Systems Review Of Systems: ROS reveals no pertinent complaints other than HPI. ED EXAM, GENERAL - Physical Exam Exam: See Below (See dictation) Course - Vital Signs Last Recorded V/S: Last Vital Signs Temp 36.6 C 10/09/17 04:46 Pulse 88 10/09/17 04:46 Resp 18 10/09/17 04:46 BP 109/70 10/09/17 04:46 Pulse Ox 99 10/09/17 04:46 - Orders/Labs/Meds Labs: Laboratory Tests 10/09/17 10/09/17 10/09/17 Range/Units 05:10 05:10 05:10 WBC 8.58 (4.0-11.0) K/uL RBC 3.87 L (4.30-5.90) M/uL Hgb 11.8 L (12.0-16.0) g/dL Hct 34.5 L (36.0-46.0) % MCV 89.1 (80.0-98.0) fL MCH 30.5 (27.0-32.0) pg MCHC 34.2 (31.0-37.0) g/dL RDW Std Deviation 44.1 (28.0-62.0) fl RDW Coeff of Omari 14 (11.0-15.0) % Plt Count 205 (150-400) K/uL MPV 10.70 (7.40-12.00) fL Neut % (Auto) 75.9 (48.0-80.0) % Lymph % (Auto) 14.5 L (16.0-40.0) % [place] % (Auto) 7.8 (0.0-15.0) % Eos % (Auto) 1.7 (0.0-7.0) % Baso % (Auto) 0.1 (0.0-1.5) % Neut # (Auto) 6.5 H (1.4-5.7) K/uL Lymph # (Auto) 1.2 (0.6-2.4) K/uL [place] # (Auto) 0.7 (0.0-0.8) K/uL Eos # (Auto) 0.2 (0.0-0.7) K/uL Baso # (Auto) 0.0 (0.0-0.1) K/uL Nucleated RBC % 0.0 /100WBC Nucleated RBCs # 0 K/uL Sodium 141 (136-145) mmol/L Potassium 3.5 (3.5-5.1) mmol/L Chloride 107 (98-107) mmol/L Carbon Dioxide 22.8 (21.0-32.0) mmol/L BUN 6 L (7.0-18.0) mg/dL Creatinine 0.7 (0.6-1.0) mg/dL Est Cr Clr Drug Dosing 108.63 mL/min Estimated GFR (MDRD) > 60.0 ml/min Glucose 105 (74-106) mg/dL Calcium 8.7 (8.5-10.1) mg/dL Total Bilirubin 0.2 (0.2-1.0) mg/dL AST 14 L (15-37) IU/L ALT 13 L (14-63) IU/L Alkaline Phosphatase 58 (46-116) U/L Total Protein 6.0 L (6.4-8.2) g/dL Albumin 2.5 L (3.4-5.0) g/dL Globulin 3.5 (2.0-3.5) g/dL Albumin/Globulin Ratio 0.7 L (1.3-2.8) Amylase 43 (25-115) U/L Lipase 125 (73-393) U/L H. pylori IgG Antibody NEGATIVE (NEG) Meds: Medications Discontinued Medications Generic Name Dose Route Start Last Admin Trade Name Freq PRN Reason Stop Dose Admin Al Hydroxide/Mg Hydroxide 15 0 ml 10/09/17 04:54 10/09/17 05:08 ml/ Metoclopramide HCl 5 mg/ PO 10/09/17 04:55 1 each Lidocaine HCl 5 ml ONETIME ONE Administration Sodium Chloride 1,000 mls @ 999 mls/hr 10/09/17 04:54 10/09/17 05:06 Normal Saline IV 10/09/17 05:54 999 mls/hr STAT ONE Administration Morphine Sulfate 4 mg 10/09/17 04:54 10/09/17 05:08 Morphine IVPUSH 10/09/17 04:55 4 mg ONETIME ONE Administration Ondansetron HCl 4 mg 10/09/17 04:54 10/09/17 05:08 Zofran IVPUSH 10/09/17 04:55 4 mg ONETIME ONE Administration Pantoprazole Sodium 80 mg 10/09/17 04:54 10/09/17 05:07 Protonix Iv IVPUSH 10/09/17 04:55 80 mg .BOLUS ONE Administration Departure - Departure Time of Disposition: 06:08 Disposition: Home, Self-Care 01 Condition: Good Clinical Impression: Epigastric abdominal pain - Discharge Information Referrals: Navin Pacheco MD [Primary Care Provider] - Forms: ED Department Discharge Additional Instructions: The following information is given to patients seen in the emergency department who are being discharged to home. This information is to outline your options for follow-up care. We provide all patients seen in our emergency department with a follow-up referral. The need for follow-up, as well as the timing and circumstances, are variable depending upon the specifics of your emergency department visit. If you don't have a primary care physician on staff, we will provide you with a referral. We always advise you to contact your personal physician following an emergency department visit to inform them of the circumstance of the visit and for follow-up with them and/or the need for any referrals to a consulting specialist. The emergency department will also refer you to a specialist when appropriate. This referral assures that you have the opportunity for followup care with a specialist. All of these measure are taken in an effort to provide you with optimal care, which includes your followup. Under all circumstances we always encourage you to contact your private physician who remains a resource for coordinating your care. When calling for followup care, please make the office aware that this follow-up is from your recent emergency room visit. If for any reason you are refused follow-up, please contact the [facility] emergency department at and ask to speak to the emergency department charge nurse. [facility] [address] [place] [address] Please contact Chika Garcia on Wednesday discussed tonight the events and try to avoid fatty foods as we discussed. Also try to avoid caffeinated products. Use Carafate as prescribed and return to ER as needed and as discussed.
[2017-10-09] MEDS ORDERED: Ondansetron 4 MG/2 ML SDV IVPUSH ONE (04:54)
[2017-10-09] MEDS ORDERED: Sodium Chloride 0.9% 1,000 ML IV ONE (04:54)
[2017-10-09] MEDS ORDERED: Morphine 2 MG/ML Syringe IVPUSH ONE (04:54)
[2017-10-09] MEDS ORDERED: Pantoprazole 40 MG Vial IVPUSH ONE (04:54)
[2017-10-09] MEDS ORDERED: Alum Hydrox/Mag Hydrox/Simeth 15 ML, Metoclopramide 5 MG, Lidocaine 2% 5 ML PO ONE ×3 (04:54)
[2017-10-09 05:32] LABS: CHLORIDE,CL 107 mmol/L (98-107); SODIUM,NA 141 mmol/L (136-145)
[2017-10-09 06:44] VITALS: BP 94/51
== END 2017-10-09 06:40 | disposition home or self-care (01) ==
LOC: MW.ED 04:43
DX: O99.89 Other specified diseases and conditions complicating pregnancy, childbirth and the puerperium (principal); R10.13 Epigastric pain; O99.213 Obesity complicating pregnancy, third trimester; I50.9 Heart failure, unspecified; Z88.1 Allergy status to other antibiotic agents; Z3A.25 25 weeks gestation of pregnancy
CPT/HCPCS: 36415; 80053; 82150; 83690; 85025; 86677; 96361; 96374; 96375; 99284; A9270; C9113; J2270; J2405; J7040

== ENCOUNTER 2018-01-10 08:51 | Inpatient (IN) | payer MEDICAID ==
[2018-01-10] MEDS ORDERED: Citric Acid/Sodium Citrate Solution 30 ML Cup PO ONE (09:11)
[2018-01-10] MEDS ORDERED: Sodium Chloride 0.9% 2.5 ML Syringe FLUSH PRN (09:11)
[2018-01-10] MEDS ORDERED: Sodium Chloride 0.9% 10 ML Syringe FLUSH PRN (09:11)
[2018-01-10] MEDS ORDERED: Oxytocin/0.9 % Sodium Chloride 30 UNIT/500 ML BAG IV SCH (09:15)
--- NOTE | 2018-01-10 10:05 | PCM.PREANE ---
Preanesthetic Assessment - Anesthesia/Transfusion/Family Hx Anesthesia History: Prior Anesthesia Without Reaction Family History of Anesthesia Reaction: No Transfusion History: Prior Transfusion Without Reaction - Review of Systems General: No Symptoms Pulmonary: No Symptoms Cardiovascular: No Symptoms Gastrointestinal: No Symptoms Neurological: No Symptoms Other: Reports: None - Physical Assessment NPO Status Date: 01/09/18 Height: 1.68 m Weight: 117.934 kg ASA Class: 2 Mental Status: Alert & Oriented x3 Airway Class: Mallampati = 1 Dentition: Reports: Normal Dentition ROM/Head Extension: Full Lungs: Clear to Auscultation, Normal Respiratory Effort Cardiovascular: Regular Rate, Regular Rhythm - Lab Values: Laboratory Last Values WBC 8.10 K/uL (4.0-11.0) 01/10/18 09:25 RBC 4.24 M/uL (4.30-5.90) L 01/10/18 09:25 Hgb 11.9 g/dL (12.0-16.0) L 01/10/18 09:25 Hct 35.2 % (36.0-46.0) L 01/10/18 09:25 MCV 83.0 fL (80.0-98.0) 01/10/18 09:25 MCH 28.1 pg (27.0-32.0) 01/10/18 09:25 MCHC 33.8 g/dL (31.0-37.0) 01/10/18 09:25 RDW Std Deviation 43.2 fl (28.0-62.0) 01/10/18 09:25 RDW Coeff of Omari 14 % (11.0-15.0) 01/10/18 09:25 Plt Count 200 K/uL (150-400) 01/10/18 09:25 MPV 11.20 fL (7.40-12.00) 01/10/18 09:25 Nucleated RBC % 0.0 /100WBC 01/10/18 09:25 Nucleated RBCs # 0 K/uL 01/10/18 09:25 - Allergies Allergies/Adverse Reactions: Allergies Allergy/AdvReac Type Severity Reaction Status Date / Time amoxicillin Allergy Cannot Verified 01/05/18 07:34 Remember - Anesthesia Plan Pre-Op Medication Ordered: Antacids - Acknowledgements Anesthesia Type Planned: Spinal Pt an Appropriate Candidate for the Planned Anesthesia: Yes Alternatives and Risks of Anesthesia Discussed w Pt/Guardian: Yes Pt/Guardian Understands and Agrees with Anesthesia Plan: Yes Additional Comments: repeat elective c section , hx of post congestive failure for 1 week after 1st c section. normal echo per pt a 3 weeks post . no sx of cardiomyopathy now. plts 200k. PLAN: spinal with it duramorph. 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: Other OB/BYN History: & D/C Musculoskeletal History: Reports: Fracture Other Musculoskeletal History: hx of fx toe Neurological History: Reports: None Psychiatric History: Reports: None Endocrine/Metabolic History: Reports: Obesity/BMI 30+ Hematologic History: Reports: None Immunologic History: Reports: None Oncologic (Cancer) History: Reports: None Dermatologic History: Reports: None - Infectious Disease History Infectious Disease History: Reports: None - Past Surgical History Head Surgeries/Procedures: Reports: None HEENT Surgical History: Reports: None Cardiovascular Surgical History: Reports: None Respiratory Surgical History: Reports: None Female Surgical History: Reports: Section, D&C Endocrine Surgical History: Reports: None Neurological Surgical History: Reports: None Musculoskeletal Surgical History: Reports: None Oncologic Surgical History: Reports: None - SUBSTANCE USE Smoking Status *Q: Never Smoker Tobacco Use Within Last Twelve Months: No Second Hand Smoke Exposure: No Recreational Drug Use History: No - HOME MEDS Home Medications: Home Meds PNV95/Ferrous Fumarate/FA [ Tablet] 1 tab PO DAILY 06/12/17 [History] Calcium Carbonate [Tums] 2 tab PO ASDIRECTED PRN 12/14/17 [History] Ranitidine [Zantac] 1 tab PO DAILY 01/05/18 [History] - CURRENT (IN HOUSE) MEDS Current Meds: Current Medications Cefazolin Sodium/Dextrose 2 gm (/ Premix) 50 mls @ 100 mls/hr IV ONETIME ONE Stop: 01/10/18 10:59 Lactated Ringer's (Ringers, Lactated) 1,000 mls @ 500 mls/hr IV BOLUS NISSA Oxytocin/Sodium Chloride (Oxytocin 30 Unit/500 Ml-Ns) 30 unit in 500 mls @ 250 mls/hr IV TITRATE NISSA Sodium Chloride (Saline Flush) 10 ml FLUSH ASDIRECTED PRN PRN Reason: Keep Vein Open Sodium Chloride (Saline Flush) 2.5 ml FLUSH ASDIRECTED PRN PRN Reason: Keep Vein Open Discontinued Medications Citric Acid/Sodium Citrate (Bicitra Solution) 30 ml PO ONETIME ONE Stop: 01/10/18 09:12
[2018-01-10] MEDS ORDERED: Oxytocin 10 Units/1 ML SDV ONE ×2 (10:06→11:22)
[2018-01-10] MEDS ORDERED: Phenylephrine 1% 10 MG/ML SDV ONE (10:06)
[2018-01-10] MEDS ORDERED: Ondansetron 4 MG/2 ML SDV ONE (10:06)
[2018-01-10] MEDS ORDERED: Morphine PF 1 MG/ML Amp ONE (10:07)
[2018-01-10] MEDS ORDERED: ceFAZolin/Dextrose,Iso-Osmotic 2 GM/50 ML Duplex Bag IV ONE (10:12)
[2018-01-10] MEDS ORDERED: Octyl 2-Cyanoacrylate 1 Tube ONE (10:29)
[2018-01-10] MEDS ORDERED: ceFAZolin 2 GM in Premix Bag 1 BAG IV ONE (10:30)
--- NOTE | 2018-01-10 10:31 | PCM.LDHP ---
L&D History of Present Illness - General Date of Service: 01/10/18 Admit Problem/Dx: Patient Status Order with Admit Dx/Problem 01/10/18 09:12 Patient Status [ADT] Routine Admission Diagnosis/Problem Admission Diagnosis/Problem - planned Source of Information: Patient History Limitations: Reports: No Limitations - History of Present Illness Improves with: Reports: None Worsens with: Reports: None Associated Symptoms: Reports: N - Related Data Allergies/Adverse Reactions: Allergies Allergy/AdvReac Type Severity Reaction Status Date / Time amoxicillin Allergy Cannot Verified 01/05/18 07:34 Remember Home Medications: Home Meds PNV95/Ferrous Fumarate/FA [ Tablet] 1 tab PO DAILY 06/12/17 [History] Calcium Carbonate [Tums] 2 tab PO ASDIRECTED PRN 12/14/17 [History] Ranitidine [Zantac] 1 tab PO DAILY 01/05/18 [History] Past Medical History HEENT History: Reports: None Other HEENT History: wears glasses Cardiovascular History: Reports: Heart Failure Other Cardiovascular History: HX OF "ENLARGED HEART AND FLUID ON LUNG" FROM 3 YEARS AGO, NO CURRENT TREATMENT Respiratory History: Reports: None Gastrointestinal History: Reports: None Other Gastrointestinal History: occasional heartburn Genitourinary History: Reports: None 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: Other OB/BYN History: & D/C Musculoskeletal History: Reports: Fracture Other Musculoskeletal History: hx of fx toe Neurological History: Reports: None Psychiatric History: Reports: None Endocrine/Metabolic History: Reports: Obesity/BMI 30+ Hematologic History: Reports: None Immunologic History: Reports: None Oncologic (Cancer) History: Reports: None Dermatologic History: Reports: None - Infectious Disease History Infectious Disease History: Reports: None - Past Surgical History Head Surgeries/Procedures: Reports: None HEENT Surgical History: Reports: None Cardiovascular Surgical History: Reports: None Respiratory Surgical History: Reports: None Female Surgical History: Reports: Section, D&C Endocrine Surgical History: Reports: None Neurological Surgical History: Reports: None Musculoskeletal Surgical History: Reports: None Oncologic Surgical History: Reports: None Social & Family History - Family History Family Medical History: Noncontributory - Tobacco Use Smoking Status *Q: Never Smoker Used Tobacco, but Quit: Yes Month/Year Tobacco Last Used: quit 4 yrs ago Second Hand Smoke Exposure: No - Caffeine Use Caffeine Use: Reports: None - Recreational Drug Use Recreational Drug Use: No H&P Review of Systems - Review of Systems: Review Of Systems: See Below General: Reports: No Symptoms HEENT: Reports: No Symptoms Pulmonary: Reports: No Symptoms Cardiovascular: Reports: No Symptoms Gastrointestinal: Reports: No Symptoms Genitourinary: Reports: No Symptoms Musculoskeletal: Reports: No Symptoms Skin: Reports: No Symptoms Psychiatric: Reports: No Symptoms Neurological: Reports: No Symptoms Hematologic/Lymphatic: Reports: No Symptoms Immunologic: Reports: No Symptoms L&D Exam - Exam Exam: See Below - Vital Signs Weight: 117.934 kg - OB Specific Fundal Height In cm: 38 Contraction Intensity: Mild Movement: Active Heart Tones: Present Presentation: Vertex - Post Score Post Score Cervix Position: Midposition Post Score Consistency: Medium Post Score Effacement: 31-50% Post Score Dilation: Closed Post Score 's Station: -2 Post Score Total: 4 - Exam General: Alert, Oriented HEENT: PERRLA, Conjunctiva Clear, EACs Clear, EOMI, Hearing Intact, Mucosa Moist & [place], Nares Patent, Normal Nasal Septum, Posterior Pharynx Clear, TMs Clear Neck: Supple, Trachea Midline Lungs: Clear to Auscultation, Normal Respiratory Effort Cardiovascular: Regular Rate, Regular Rhythm GI/Abdominal Exam: Normal Bowel Sounds, Soft, Non-Tender, No Organomegaly, No Distention, No Abnormal Bruit, No Mass, Pelvis Stable Rectal Exam: Normal Exam, Normal Rectal Tone Genitourinary: Normal external exam, Normal bimanual exam, Normal speculum exam Back Exam: Normal Inspection, Full Range of Motion Extremities: Normal Inspection, Normal Range of Motion, Non-Tender, No Pedal Edema, Normal Capillary Refill Skin: Warm, Dry, Intact Neurological: Cranial Nerves Intact, Reflexes Equal Bilateral Psychiatric: Alert, Normal Affect, Normal Mood - Patient Data Lab Results Last 24 hrs: Laboratory Results - last 24 hr 01/10/18 01/10/18 Range/Units 09:25 09:25 WBC 8.10 (4.0-11.0) K/uL RBC 4.24 L (4.30-5.90) M/uL Hgb 11.9 L (12.0-16.0) g/dL Hct 35.2 L (36.0-46.0) % MCV 83.0 (80.0-98.0) fL MCH 28.1 (27.0-32.0) pg MCHC 33.8 (31.0-37.0) g/dL RDW Std Deviation 43.2 (28.0-62.0) fl RDW Coeff of Omari 14 (11.0-15.0) % Plt Count 200 (150-400) K/uL MPV 11.20 (7.40-12.00) fL Nucleated RBC % 0.0 /100WBC Nucleated RBCs # 0 K/uL Blood Type A POSITIVE Antibody Screen NEGATIVE Result Diagrams: 01/10/18 09:25 Problem List Initiated/Reviewed/Updated: Yes Orders Last 24hrs: Active Orders 24 hr Category Date Time Status Patient Status [ADT] Routine ADT 01/10/18 09:12 Active Non Stress Test [RC] PER UNIT ROUTINE Care 01/10/18 09:12 Active Notify Provider Vital Signs [RC] PRN Care 01/10/18 09:13 Active Procedure Site Prep Instruct [RC] ASDIRECTED Care 01/10/18 09:12 Active Up ad Jessika [RC] ASDIRECTED Care 01/10/18 09:12 Active Verify Patient Consent Obtain [RC] ASDIRECTED Care 01/10/18 09:12 Active Vital Signs [RC] PER UNIT ROUTINE Care 01/10/18 09:12 Active Lactated Ringers [Ringers, Lactated] 1,000 ml Med 01/10/18 09:15 Active IV BOLUS Oxytocin/0.9 % Sodium Chloride [Oxytocin 30 Unit/500 ML Med 01/10/18 09:15 Active -NS] 30 unit in 500 ml IV TITRATE Sodium Chloride 0.9% [Saline Flush] Med 01/10/18 09:11 Active 10 ml FLUSH ASDIRECTED PRN Sodium Chloride 0.9% [Saline Flush] Med 01/10/18 09:11 Active 2.5 ml FLUSH ASDIRECTED PRN ceFAZolin [Ancef] 2 gm Med 01/10/18 10:30 Active Premix Bag 1 bag IV ONETIME Peripheral IV Insertion Adult [OM.PC] Routine Oth 01/10/18 09:12 Ordered Schedule Procedure [COMM] Per Unit Routine Oth 01/10/18 09:12 Ordered Resuscitation Status Routine Resus Stat 01/10/18 09:11 Ordered Medication Orders Cefazolin Sodium/Dextrose 2 gm (/ Premix) 50 mls @ 100 mls/hr IV ONETIME ONE Stop: 01/10/18 10:59 Lactated Ringer's (Ringers, Lactated) 1,000 mls @ 500 mls/hr IV BOLUS NISSA Oxytocin/Sodium Chloride (Oxytocin 30 Unit/500 Ml-Ns) 30 unit in 500 mls @ 250 mls/hr IV TITRATE NISSA Sodium Chloride (Saline Flush) 10 ml FLUSH ASDIRECTED PRN PRN Reason: Keep Vein Open Sodium Chloride (Saline Flush) 2.5 ml FLUSH ASDIRECTED PRN PRN Reason: Keep Vein Open Assessment/Plan Comment:: Term she status post multiple section she is admitted for elective repeat section with permanent sterilization she was approved by the committee and she signed the consent for permanent sterilization.
[2018-01-10] MEDS: Lactated Ringers 1,000 ML IV SCH ×2 (10:32→11:08)
[2018-01-10] MEDS ORDERED: Acetaminophen/oxyCODONE 325-5 MG Tab PO PRN ×2 (11:32→11:48)
[2018-01-10] MEDS ORDERED: fentaNYL 100 MCG/2 ML SDV IVPUSH PRN (11:32)
[2018-01-10] MEDS ORDERED: Bisacodyl 10 MG Supp RECTAL PRN (11:48)
[2018-01-10] MEDS ORDERED: Ondansetron 4 MG/2 ML SDV IV PRN (11:48)
[2018-01-10] MEDS ORDERED: diphenhydrAMINE 50 MG/ML SDV IVPUSH PRN (11:48)
[2018-01-10] MEDS ORDERED: Lanolin 100% Cream 7 GM Tube TOP PRN (11:48)
--- NOTE | 2018-01-10 11:52 | PCM.OPNOTE ---
- General Post-Op/Procedure Note Date of Surgery/Procedure: 01/10/18 Operative Procedure(s): Repeat C/section and Bilateral Salpengectomy Pre Op Diagnosis: IUP 39+ wks previos C/section geraldine permenat sterlization. Post-Op Diagnosis: Same Anesthesia Technique: Spinal Primary Surgeon: Hugo Garcia Manager Document: Chika Garcia EBL in mLs: 700 Complications: None Condition: Good
[2018-01-10] MEDS ORDERED: Lactated Ringers 1,000 ML IV SCH (12:00)
--- NOTE | 2018-01-10 12:32 | PCM.POSTAN ---
POST ANESTHESIA ASSESSMENT - MENTAL STATUS Mental Status: Alert, Oriented - RESPIRATORY Respiratory Status: Respiratory Rate WNL, Airway Patent, O2 Saturation Stable - CARDIOVASCULAR CV Status: Pulse Rate WNL, Blood Pressure Stable - GASTROINTESTINAL GI Status: No Symptoms - POST OP HYDRATION Hydration Status: Adequate & Stable
[2018-01-10] MEDS: Ketorolac 30 MG/ML SDV IVPUSH SCH ×2 (12:34→18:19)
--- NOTE | 2018-01-10 13:14 | OR ---
SURGEON: Hugo Garcia MD DATE OF PROCEDURE: POSTOPERATIVE DIAGNOSES: 1. Intrauterine , 39+ week. 2. Previous section, desires permanent sterilization. POSTOPERATIVE DIAGNOSES: 1. Intrauterine , 39+ week. 2. Previous section, desires permanent sterilization. OPERATION PERFORMED: Repeat low-transverse section with bilateral salpingectomy. CPO: Chika Garcia CNM. ANESTHESIA: Spinal. ANESTHEIOLOGISTS: 1. Siomara Call. 2. Dr. Alcantara. ESTIMATED BLOOD LOSS: 700 mL. COMPLICATIONS: None. FINDING: Female fetus. score reported to be 8 and 9. Normal uterus, tubes, and ovary. The weight is not available. INDICATION FOR SURGERY: This patient is 27. She had multiple previous section. She desired permanent sterilization. She is approved by the ethic committee for sterilization. She consented for repeat section and sterilization. PROCEDURE IN DETAIL: The patient was brought to the OR, properly identified, and after adequate level of spinal anesthesia, the patient prepped and draped with a Graves catheter in the bladder in the usual manner. Then, time-out was taken to further identify the patient and then low transverse Pfannenstiel skin incision was done. Mindi's fascia, rectus fascia was opened in the direction of the incision. The 2 recti muscles were and peritoneal cavity was entered. Bladder flap was raised in the usual manner pushing the bladder away from the lower uterine segment. Low transverse uterine incision was done and extended manually with the hand. Fetus was delivered, was in the vertex position, handed to the resuscitating team. Later on the score reported to be 8 and 9. The weight is not available, and then repair of the lower uterine segment done with 2-0 Vicryl continuous interlocking in 2 layers. Reperitonealization done with 3- 0 Vicryl continuous. Then, attention paid to the tube and bilateral salpingectomy accomplished using the Harmonic scapula. Inspection of the of the site after the salpingectomy, there was no oozing, no bleeding, then the peritoneal cavity evacuated from all the previous blood and blood clot from the section and closed with 3-0 Vicryl continuous. The rectus fascia was closed with #1 PDS continuous. The Mindi's fascia with 3-0 Vicryl continuous, and the skin closed with 3-0 Vicryl and John needle in a subcuticular fashion and Dermabond. Instrument and sponge count was correct. The patient tolerated the procedure well, went to recovery room in stable general condition. JUICE MOORE /[id number]
[2018-01-10] MEDS: Nalbuphine 10 MG/1 ML Vial IVPUSH PRN ×2 (13:47→18:20)
[2018-01-11] MEDS: Ketorolac 30 MG/ML SDV IVPUSH SCH ×3 (00:02→11:56)
[2018-01-11] MEDS: Docusate Sodium 100 MG Cap PO SCH ×2 (00:12→09:07)
--- NOTE | 2018-01-11 08:19 | PCM.PNPP ---
- General Info Date of Service: 01/11/18 Admission Dx/Problem (Free Text): Patient Status Order with Admit Dx/Problem 01/10/18 09:12 Patient Status [ADT] Routine Admission Diagnosis/Problem Admission Diagnosis/Problem - planned Functional Status: Reports: Pain Controlled, Tolerating Diet, Ambulating, Urinating - Review of Systems General: Reports: No Symptoms HEENT: Reports: No Symptoms Pulmonary: Reports: No Symptoms Cardiovascular: Reports: No Symptoms Gastrointestinal: Reports: No Symptoms Genitourinary: Reports: No Symptoms Musculoskeletal: Reports: No Symptoms Skin: Reports: No Symptoms Neurological: Reports: No Symptoms Psychiatric: Reports: No Symptoms - General Info Date of Service: 01/11/18 - Patient Data Vital Signs - Most Recent: Last Vital Signs Temp 36.6 C 01/11/18 04:00 Pulse 68 01/11/18 04:00 Resp 18 01/11/18 07:00 BP 128/58 L 01/11/18 04:00 Pulse Ox 96 01/11/18 07:00 Weight - Most Recent: 117.934 kg I&O - Last 24 Hours: Intake & Output 01/10/18 01/11/18 01/11/18 22:59 06:59 14:59 Intake Total 200 800 Output Total 300 150 Balance -100 650 Lab Results - Last 24 Hours: Laboratory Results - last 24 hr 01/10/18 01/10/18 01/11/18 Range/Units 09:25 09:25 05:08 WBC 8.10 (4.0-11.0) K/uL RBC 4.24 L (4.30-5.90) M/uL Hgb 11.9 L 11.3 L (12.0-16.0) g/dL Hct 35.2 L 34.4 L (36.0-46.0) % MCV 83.0 (80.0-98.0) fL MCH 28.1 (27.0-32.0) pg MCHC 33.8 (31.0-37.0) g/dL RDW Std Deviation 43.2 (28.0-62.0) fl RDW Coeff of Omari 14 (11.0-15.0) % Plt Count 200 (150-400) K/uL MPV 11.20 (7.40-12.00) fL Nucleated RBC % 0.0 /100WBC Nucleated RBCs # 0 K/uL Blood Type A POSITIVE Antibody Screen NEGATIVE Med Orders - Current: Current Medications Bisacodyl (Dulcolax) 10 mg RECTAL ONETIME PRN PRN Reason: Constipation Diphenhydramine HCl (Benadryl) 25 mg IVPUSH Q6H PRN PRN Reason: Itching or Nausea Docusate Sodium (Colace) 100 mg PO BID ON LICENSE OF [facility] Last Admin: 01/11/18 00:12 Dose: Not Given Emollient Ointment (Lansinoh Hpa) 0 gm TOP ASDIRECTED PRN PRN Reason: Sore Nipples Fentanyl (Sublimaze) 50 mcg IVPUSH Q5M PRN PRN Reason: Pain (severe 7-10) Stop: 01/11/18 11:32 Lactated Ringer's (Ringers, Lactated) 1,000 mls @ 500 mls/hr IV BOLUS ON LICENSE OF [facility] Last Admin: 01/10/18 11:08 Dose: 500 mls/hr Oxytocin/Sodium Chloride (Oxytocin 30 Unit/500 Ml-Ns) 30 unit in 500 mls @ 250 mls/hr IV TITRATE ON LICENSE OF [facility] Lactated Ringer's (Ringers, Lactated) 1,000 mls @ 125 mls/hr IV ASDIRECTED ON LICENSE OF [facility] Ibuprofen (Motrin) 800 mg PO Q8H PRN PRN Reason: mild pain or fever Ketorolac Tromethamine (Toradol) 30 mg IVPUSH Q6H ON LICENSE OF [facility] Stop: 01/11/18 12:01 Last Admin: 01/11/18 06:02 Dose: 30 mg Nalbuphine HCl (Nubain) 2.5 mg IVPUSH Q3H PRN PRN Reason: Pruritis Stop: 01/11/18 11:33 Last Admin: 01/10/18 18:20 Dose: 2.5 mg Ondansetron HCl (Zofran) 4 mg IV Q4H PRN PRN Reason: Nausea/Vomiting Last Admin: 01/10/18 16:59 Dose: 4 mg Oxycodone/Acetaminophen (Percocet 325-5 Mg) 1 tab PO ONETIME PRN PRN Reason: Pain (moderate 4-6) Oxycodone/Acetaminophen (Percocet 325-5 Mg) 1 tab PO Q4H PRN PRN Reason: Pain (moderate 4-6) Oxycodone/Acetaminophen (Percocet 325-5 Mg) 2 tab PO Q4H PRN PRN Reason: Pain (moderate 4-6) Sodium Chloride (Saline Flush) 10 ml FLUSH ASDIRECTED PRN PRN Reason: Keep Vein Open Sodium Chloride (Saline Flush) 2.5 ml FLUSH ASDIRECTED PRN PRN Reason: Keep Vein Open Discontinued Medications Cefazolin Sodium/Dextrose (Ancef) Confirm Administered Dose 2 gm IV .STK-MED ONE Stop: 01/10/18 10:13 Citric Acid/Sodium Citrate (Bicitra Solution) 30 ml PO ONETIME ONE Stop: 01/10/18 09:12 Last Admin: 01/10/18 10:39 Dose: 30 ml Cefazolin Sodium/Dextrose 2 gm (/ Premix) 50 mls @ 100 mls/hr IV ONETIME ONE Stop: 01/10/18 10:59 Last Admin: 01/10/18 15:51 Dose: Not Given Morphine Sulfate (Duramorph Pf) Confirm Administered Dose 1 mg .ROUTE .STK-MED ONE Stop: 01/10/18 10:08 Octyl Cyanoacrylate (Dermabond Advance) Confirm Administered Dose 1 applic .ROUTE .STK-MED ONE Stop: 01/10/18 10:30 Ondansetron HCl (Zofran) Confirm Administered Dose 4 mg .ROUTE .STK-MED ONE Stop: 01/10/18 10:07 Oxytocin (Pitocin) Confirm Administered Dose 20 unit .ROUTE .STK-MED ONE Stop: 01/10/18 10:07 Oxytocin (Pitocin) Confirm Administered Dose 10 unit .ROUTE .STK-MED ONE Stop: 01/10/18 11:23 Phenylephrine HCl (Alexis-Synephrine) Confirm Administered Dose 10 mg .ROUTE .STK- MED ONE Stop: 01/10/18 10:07 - Infant Interaction Disposition, : to Nursery Interaction: Holding Infant Infant Feeding: Attempted ; Nursed Fair/Poor Support Person: Significant Other - Recovery Exam Fundal Tone: Firm Fundal Level: At Umbilicus Fundal Placement: Midline Lochia Amount: Scant Lochia Color: Rubra/Red Perineum Description: Intact, Minimal Bruising/Swelling Bladder Status: Voiding Urinary Elimination: Voided - Exam General: Alert, Oriented, Cooperative, No Acute Distress Lungs: Clear to Auscultation, Normal Respiratory Effort Cardiovascular: Regular Rate, Regular Rhythm, No Murmurs GI/Abdominal Exam: Soft, Non-Tender Extremities: Normal Inspection, Normal Range of Motion, Non-Tender, No Pedal Edema, Normal Capillary Refill Skin: Warm Wound/Incisions: Healing Well, No Drainage Neurological: No New Focal Deficit, Normal Speech, Normal Tone, Strength Equal Bilateral Psy/Mental Status: Alert, Normal Affect, Normal Mood - Problem List & Annotations (1) Supervision of normal IUP (intrauterine ) in multigravida SNOMED Code(s): 693846988, 979208922, 591161227 Code(s): Z34.80 - ENCOUNTER FOR SUPRVSN OF NORMAL , UNSP TRIMESTER Status: Acute Priority: High Current Visit: Yes Qualifiers: Trimester: third trimester Qualified Code(s): Z34.83 - Encounter for supervision of other normal , third trimester (2) delivery delivered SNOMED Code(s): 115202781 Code(s): O82 - ENCOUNTER FOR DELIVERY WITHOUT INDICATION Status: Acute Current Visit: No - Problem List Review Problem List Initiated/Reviewed/Updated: Yes - Plan Plan:: Term she status post multiple section she is admitted for elective repeat section with permanent sterilization she was approved by the committee and she signed the consent for permanent sterilization. PPD#1 A: VSS, AF, incision intact, no drainage or erythema, lochia small, FF -2bu. Stable P: continue pp plan of care
[2018-01-11] MEDS: Nalbuphine 10 MG/1 ML Vial IVPUSH PRN (09:10)
[2018-01-11] MEDS: Ibuprofen 800 MG Tab PO PRN (20:04)
[2018-01-11] MEDS: Acetaminophen/oxyCODONE 325-5 MG Tab PO PRN (22:50)
[2018-01-12] MEDS: Docusate Sodium 100 MG Cap PO SCH ×2 (00:14→09:33)
[2018-01-12] MEDS: Acetaminophen/oxyCODONE 325-5 MG Tab PO PRN (04:21)
--- NOTE | 2018-01-12 07:56 | PCM.DCSUM1 ---
Discharge Summary - Hospital Course Free Text/Narrative:: Discharge home today with . Follow up in 1 week for incision check and 6 weeks for post visit. Follow up sooner if needed. Diagnosis: Stroke: No - Discharge Data Discharge Date: 01/12/18 Discharge Disposition: Home, Self-Care 01 Condition: Good - Discharge Diagnosis/Problem(s) (1) Supervision of normal IUP (intrauterine ) in multigravida SNOMED Code(s): 045447308, 929697421, [id number] ICD Code: Z34.80 - ENCOUNTER FOR SUPRVSN OF NORMAL , UNSP TRIMESTER Status: Acute Priority: High Current Visit: Yes Qualifiers: Trimester: third trimester Qualified Code(s): Z34.83 - Encounter for supervision of other normal , third trimester (2) delivery delivered SNOMED Code(s): 599735763 ICD Code: O82 - ENCOUNTER FOR DELIVERY WITHOUT INDICATION Status: Acute Current Visit: No - Patient Summary/Data Operative Procedure(s) Performed: Repeat C/section and Bilateral Salpengectomy - Patient Instructions Diet: Usual Diet as Tolerated Activity: As Tolerated, No Strenuous Activities, Rest and Relax Today Driving: May Drive Today Showering/Bathing: May Shower Wound/Incision Care: Keep Operative Site/Wound Site Clean and Dry Notify Provider of: Fever, Increased Pain, Swelling and Redness, Nausea and/or Vomiting Other/Special Instructions: Discharge home today with . Follow up in 1 week for incision check and 6 weeks for post visit. Follow up sooner if needed. - Discharge Plan *PRESCRIPTION DRUG MONITORING PROGRAM REVIEWED*: Not Applicable *COPY OF PRESCRIPTION DRUG MONITORING REPORT IN PATIENT GEO: Not Applicable Home Medications: Home Meds PNV95/Ferrous Fumarate/FA [ Tablet] 1 tab PO DAILY 06/12/17 [History] Calcium Carbonate [Tums] 2 tab PO ASDIRECTED PRN 12/14/17 [History] Ranitidine [Zantac] 1 tab PO DAILY 01/05/18 [History] Referrals: [facility] [Outside] Hugo Garcia MD [Physician] - (1 week- January 17 @ 8:30am w/ Dr. Garcia 6 week- February 14 @ 9:30am w/ Dr. Garcia ) - General Info Date of Service: 01/12/18 Admission Dx/Problem (Free Text: Patient Status Order with Admit Dx/Problem 01/10/18 09:12 Patient Status [ADT] Routine Admission Diagnosis/Problem Admission Diagnosis/Problem - planned Functional Status: Reports: Pain Controlled, Tolerating Diet, Ambulating, Urinating - Review of Systems General: Reports: No Symptoms HEENT: Reports: No Symptoms Pulmonary: Reports: No Symptoms Cardiovascular: Reports: No Symptoms Gastrointestinal: Reports: No Symptoms Genitourinary: Reports: No Symptoms Musculoskeletal: Reports: No Symptoms Skin: Reports: No Symptoms Neurological: Reports: No Symptoms Psychiatric: Reports: No Symptoms - Patient Data Vitals - Most Recent: Last Vital Signs Temp 36.5 C 01/11/18 19:46 Pulse 80 01/12/18 04:40 Resp 16 01/12/18 04:40 BP 129/81 01/12/18 04:40 Pulse Ox 97 01/12/18 04:40 Weight - Most Recent: 117.934 kg Med Orders - Current: Current Medications Bisacodyl (Dulcolax) 10 mg RECTAL ONETIME PRN PRN Reason: Constipation Diphenhydramine HCl (Benadryl) 25 mg IVPUSH Q6H PRN PRN Reason: Itching or Nausea Docusate Sodium (Colace) 100 mg PO BID [facility] Last Admin: 01/12/18 00:14 Dose: Not Given Emollient Ointment (Lansinoh Hpa) 0 gm TOP ASDIRECTED PRN PRN Reason: Sore Nipples Lactated Ringer's (Ringers, Lactated) 1,000 mls @ 500 mls/hr IV BOLUS [facility] Last Admin: 01/10/18 11:08 Dose: 500 mls/hr Oxytocin/Sodium Chloride (Oxytocin 30 Unit/500 Ml-Ns) 30 unit in 500 mls @ 250 mls/hr IV TITRATE [facility] Lactated Ringer's (Ringers, Lactated) 1,000 mls @ 125 mls/hr IV ASDIRECTED [facility] Ibuprofen (Motrin) 800 mg PO Q8H PRN PRN Reason: mild pain or fever Last Admin: 01/11/18 20:04 Dose: 800 mg Ondansetron HCl (Zofran) 4 mg IV Q4H PRN PRN Reason: Nausea/Vomiting Last Admin: 01/10/18 16:59 Dose: 4 mg Oxycodone/Acetaminophen (Percocet 325-5 Mg) 1 tab PO ONETIME PRN PRN Reason: Pain (moderate 4-6) Last Admin: 01/11/18 17:36 Dose: 1 tab Oxycodone/Acetaminophen (Percocet 325-5 Mg) 1 tab PO Q4H PRN PRN Reason: Pain (moderate 4-6) Last Admin: 01/12/18 04:21 Dose: 1 tab Oxycodone/Acetaminophen (Percocet 325-5 Mg) 2 tab PO Q4H PRN PRN Reason: Pain (moderate 4-6) Sodium Chloride (Saline Flush) 10 ml FLUSH ASDIRECTED PRN PRN Reason: Keep Vein Open Sodium Chloride (Saline Flush) 2.5 ml FLUSH ASDIRECTED PRN PRN Reason: Keep Vein Open Discontinued Medications Cefazolin Sodium/Dextrose (Ancef) Confirm Administered Dose 2 gm IV .STK-MED ONE Stop: 01/10/18 10:13 Citric Acid/Sodium Citrate (Bicitra Solution) 30 ml PO ONETIME ONE Stop: 01/10/18 09:12 Last Admin: 01/10/18 10:39 Dose: 30 ml Fentanyl (Sublimaze) 50 mcg IVPUSH Q5M PRN PRN Reason: Pain (severe 7-10) Stop: 01/11/18 11:32 Cefazolin Sodium/Dextrose 2 gm (/ Premix) 50 mls @ 100 mls/hr IV ONETIME ONE Stop: 01/10/18 10:59 Last Admin: 01/10/18 15:51 Dose: Not Given Ketorolac Tromethamine (Toradol) 30 mg IVPUSH Q6H NISSA Stop: 01/11/18 12:01 Last Admin: 01/11/18 11:56 Dose: 30 mg Morphine Sulfate (Duramorph Pf) Confirm Administered Dose 1 mg .ROUTE .STK-MED ONE Stop: 01/10/18 10:08 Nalbuphine HCl (Nubain) 2.5 mg IVPUSH Q3H PRN PRN Reason: Pruritis Stop: 01/11/18 11:33 Last Admin: 01/11/18 09:10 Dose: 2.5 mg Octyl Cyanoacrylate (Dermabond Advance) Confirm Administered Dose 1 applic .ROUTE .STK-MED ONE Stop: 01/10/18 10:30 Ondansetron HCl (Zofran) Confirm Administered Dose 4 mg .ROUTE .STK-MED ONE Stop: 01/10/18 10:07 Oxytocin (Pitocin) Confirm Administered Dose 20 unit .ROUTE .STK-MED ONE Stop: 01/10/18 10:07 Oxytocin (Pitocin) Confirm Administered Dose 10 unit .ROUTE .STK-MED ONE Stop: 01/10/18 11:23 Phenylephrine HCl (Alexis-Synephrine) Confirm Administered Dose 10 mg .ROUTE .[facility]- MED ONE Stop: 01/10/18 10:07 - Exam General: Reports: Alert, Oriented, Cooperative, No Acute Distress Lungs: Reports: Clear to Auscultation, Normal Respiratory Effort Cardiovascular: Reports: Regular Rate, Regular Rhythm, No Murmurs GI/Abdominal Exam: Soft, Non-Tender (Female) Exam: Deferred, Vaginal Bleeding Rectal (Female) Exam: Deferred Back Exam: Reports: Normal Inspection, Full Range of Motion Extremities: Normal Inspection, Normal Range of Motion, Non-Tender, No Pedal Edema, Normal Capillary Refill Skin: Reports: Warm, Dry, Intact Wound/Incisions: Reports: Healing Well Neurological: Reports: No New Focal Deficit, Normal Speech, Normal Tone, Strength Equal Bilateral Psy/Mental Status: Reports: Alert
[2018-01-12] MEDS: Ibuprofen 800 MG Tab PO PRN (08:20)
--- NOTE | 2018-01-12 09:03 | PCM48HPAN ---
Post Anesthesia Note - EVALUATION WITHIN 48HRS OF ANESTHETIC Vital Signs in Normal Range: Yes Patient Participated in Evaluation: Yes Respiratory Function Stable: Yes Airway Patent: Yes Cardiovascular Function Stable: Yes Hydration Status Stable: Yes Pain Control Satisfactory: Yes Nausea and Vomiting Control Satisfactory: Yes Mental Status Recovered: Yes Resp Rate: 16
[2018-01-12 09:16] VITALS: BP 132/72
== END 2018-01-12 11:00 | disposition home or self-care (01) | DRG 785 ==
LOC: MW.OB 08:51
PROVIDERS: ADMIT Obstetrics & Gynecology; ATTEND Obstetrics & Gynecology
PROC: 10D00Z1 Extraction of Products of Conception, Low, Open Approach (ICD-10-PCS; principal; 2018-01-10)
PROC: 0UT70ZZ Resection of Bilateral Fallopian Tubes, Open Approach (ICD-10-PCS; 2018-01-10)
DX: O34.211 Maternal care for low transverse scar from previous cesarean delivery (principal); Z3A.39 39 weeks gestation of pregnancy; Z37.0 Single live birth
CPT/HCPCS: 36415; 59025; 85014; 85018; 85027; 86850; 86900; 86901; 88302; A9270-GY; J0690; J1885; J2274; J2300; J2370; J2405; J2590; J7120

== ENCOUNTER 2018-10-11 02:14 | Day surgery (SDC) | payer MEDICAID ==
[2018-10-11] MEDS ORDERED: Sodium Chloride 0.9% 1,000 ML IV ONE (02:19)
--- NOTE | 2018-10-11 02:45 | EDM.PDOC ---
ED HPI GENERAL MEDICAL PROBLEM - General Chief Complaint: ENT Problem Stated Complaint: ABD PAIN Time Seen by Provider: 10/11/18 02:45 Source of Information: Reports: Patient - History of Present Illness INITIAL COMMENTS - FREE TEXT/NARRATIVE: HISTORY AND PHYSICAL: History of present illness: [Patient presents with complaint of globus sensation after eating meat and bread she is unable to drink water without vomiting it up Otherwise no fever nausea vomiting chills sweats ] Review of systems: As per history of present illness and below otherwise all systems reviewed and negative. Past medical history: As per history of present illness and as reviewed below otherwise noncontributory. Surgical history: As per history of present illness and as reviewed below otherwise noncontributory. Social history: No reported history of drug or alcohol abuse. Family history: As per history of present illness and as reviewed below otherwise noncontributory. Physical exam: HEENT: Atraumatic, normocephalic, pupils reactive, negative for conjunctival pallor or scleral icterus, mucous membranes moist, throat clear, neck supple, nontender, trachea midline. Lungs: Clear to auscultation, breath sounds equal bilaterally, chest nontender. Heart: S1S2, regular, negative for clicks, rubs, or JVD. Abdomen: Soft, nondistended, nontender. Negative for masses or hepatosplenomegaly. Negative for costovertebral tenderness. Pelvis: Stable nontender. Genitourinary: Deferred. Rectal: Deferred. Extremities: Atraumatic, negative for cords or calf pain. Neurovascular unremarkable. Neuro: Awake, alert, oriented. Cranial nerves II through XII unremarkable. Cerebellum unremarkable. Motor and sensory unremarkable throughout. Exam nonfocal. Diagnostics: [CBC CMP UA] Therapeutics: [Normal saline ]Glucagon [address] Roche was consult and here in the emergency room for evaluation and treatment Impression: [Globus sensation/food infection] Definitive disposition and diagnosis as appropriate pending reevaluation and review of above. Epigastric Pain Score (Numeric/FACES): 9 - Related Data Allergies Allergy/AdvReac Type Severity Reaction Status Date / Time amoxicillin Allergy Cannot Verified 10/11/18 02:22 Remember Home Meds: Home Meds . 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 LEGAL RECOVERY SPECIALIST History: & D/C Musculoskeletal History: Reports: Fracture Other Musculoskeletal History: hx of fx toe Neurological History: Reports: None Psychiatric History: Reports: None Endocrine/Metabolic History: Reports: Obesity/BMI 30+ Hematologic History: Reports: None Immunologic History: Reports: None Oncologic (Cancer) History: Reports: None Dermatologic History: Reports: None - Infectious Disease History Infectious Disease History: Reports: None - Past Surgical History Head Surgeries/Procedures: Reports: None HEENT Surgical History: Reports: Myringotomy w Tube(s) Cardiovascular Surgical History: Reports: None Respiratory Surgical History: Reports: None GI Surgical History: Reports: None Female Surgical History: Reports: Section, D&C, Tubal Ligation Endocrine Surgical History: Reports: None Neurological Surgical History: Reports: None Musculoskeletal Surgical History: Reports: None Oncologic Surgical History: Reports: None Dermatological Surgical History: Reports: None Social & Family History - Family History Family Medical History: Noncontributory - Tobacco Use Smoking Status *Q: Never Smoker Second Hand Smoke Exposure: No - Caffeine Use Caffeine Use: Reports: Coffee - Recreational Drug Use Recreational Drug Use: No ED ROS GENERAL - Review of Systems Review Of Systems: See Below ED EXAM, GENERAL - Physical Exam Exam: See Below Course - Vital Signs Last Recorded V/S: Last Vital Signs Temp 97.1 F 10/11/18 02:23 Pulse 82 10/11/18 02:23 Resp 16 10/11/18 02:23 BP 138/87 10/11/18 02:23 Pulse Ox 98 10/11/18 02:23 - Orders/Labs/Meds Labs: Laboratory Tests 10/11/18 10/11/18 10/11/18 Range/Units 02:35 02:35 02:40 WBC 6.71 (4.0-11.0) K/uL RBC 4.89 (4.30-5.90) M/uL Hgb 14.5 (12.0-16.0) g/dL Hct 43.1 (36.0-46.0) % MCV 88.1 (80.0-98.0) fL MCH 29.7 (27.0-32.0) pg MCHC 33.6 (31.0-37.0) g/dL RDW Std Deviation 41.6 (28.0-62.0) fl RDW Coeff of Omari 13 (11.0-15.0) % Plt Count 245 (150-400) K/uL MPV 10.60 (7.40-12.00) fL Neut % (Auto) 63.4 (48.0-80.0) % Lymph % (Auto) 25.5 (16.0-40.0) % [place] % (Auto) 7.7 (0.0-15.0) % Eos % (Auto) 3.1 (0.0-7.0) % Baso % (Auto) 0.3 (0.0-1.5) % Neut # (Auto) 4.3 (1.4-5.7) K/uL Lymph # (Auto) 1.7 (0.6-2.4) K/uL [place] # (Auto) 0.5 (0.0-0.8) K/uL Eos # (Auto) 0.2 (0.0-0.7) K/uL Baso # (Auto) 0.0 (0.0-0.1) K/uL Nucleated RBC % 0.0 /100WBC Nucleated RBCs # 0 K/uL Sodium 141 (136-145) mmol/L Potassium 4.0 (3.5-5.1) mmol/L Chloride 107 (98-107) mmol/L Carbon Dioxide 28.1 (21.0-32.0) mmol/L BUN 13 (7.0-18.0) mg/dL Creatinine 0.8 (0.6-1.0) mg/dL Est Cr Clr Drug Dosing 98.01 mL/min Estimated GFR (MDRD) > 60.0 ml/min Glucose 114 H (74-106) mg/dL Calcium 8.5 (8.5-10.1) mg/dL Total Bilirubin 0.4 (0.2-1.0) mg/dL AST 23 (15-37) IU/L ALT 23 (14-63) IU/L Alkaline Phosphatase 47 (46-116) U/L Total Protein 7.6 (6.4-8.2) g/dL Albumin 3.7 (3.4-5.0) g/dL Globulin 3.9 (2.6-4.0) g/dL Albumin/Globulin Ratio 0.9 (0.9-1.6) Lipase 166 (73-393) U/L Urine Color YELLOW Urine Appearance SLT CLOUDY Urine pH 6.0 (5.0-8.0) Ur Specific [place] >= 1.030 (1.001-1.035) Urine Protein NEGATIVE (NEGATIVE) mg/dL Urine Glucose (UA) NEGATIVE (NEGATIVE) mg/dL Urine Ketones NEGATIVE (NEGATIVE) mg/dL Urine Occult Blood SMALL H (NEGATIVE) Urine Nitrite NEGATIVE (NEGATIVE) Urine Bilirubin NEGATIVE (NEGATIVE) Urine Urobilinogen 0.2 (<2.0) EU/dL Ur Leukocyte Esterase NEGATIVE (NEGATIVE) Urine RBC NONE SEEN (0-2/HPF) Urine WBC 0-2 (0-5/HPF) Ur Epithelial Cells MODERATE (NONE-FEW) Urine Bacteria 1+ H (NEGATIVE) Urine Mucus LIGHT (NONE-MOD) Urine HCG, Qual (NEGATIVE) 10/11/18 Range/Units 02:40 WBC (4.0-11.0) K/uL RBC (4.30-5.90) M/uL Hgb (12.0-16.0) g/dL Hct (36.0-46.0) % MCV (80.0-98.0) fL MCH (27.0-32.0) pg MCHC (31.0-37.0) g/dL RDW Std Deviation (28.0-62.0) fl RDW Coeff of Omari (11.0-15.0) % Plt Count (150-400) K/uL MPV (7.40-12.00) fL Neut % (Auto) (48.0-80.0) % Lymph % (Auto) (16.0-40.0) % [place] % (Auto) (0.0-15.0) % Eos % (Auto) (0.0-7.0) % Baso % (Auto) (0.0-1.5) % Neut # (Auto) (1.4-5.7) K/uL Lymph # (Auto) (0.6-2.4) K/uL [place] # (Auto) (0.0-0.8) K/uL Eos # (Auto) (0.0-0.7) K/uL Baso # (Auto) (0.0-0.1) K/uL Nucleated RBC % /100WBC Nucleated RBCs # K/uL Sodium (136-145) mmol/L Potassium (3.5-5.1) mmol/L Chloride (98-107) mmol/L Carbon Dioxide (21.0-32.0) mmol/L BUN (7.0-18.0) mg/dL Creatinine (0.6-1.0) mg/dL Est Cr Clr Drug Dosing mL/min Estimated GFR (MDRD) ml/min Glucose (74-106) mg/dL Calcium (8.5-10.1) mg/dL Total Bilirubin (0.2-1.0) mg/dL AST (15-37) IU/L ALT (14-63) IU/L Alkaline Phosphatase (46-116) U/L Total Protein (6.4-8.2) g/dL Albumin (3.4-5.0) g/dL Globulin (2.6-4.0) g/dL Albumin/Globulin Ratio (0.9-1.6) Lipase (73-393) U/L Urine Color Urine Appearance Urine pH (5.0-8.0) Ur Specific [place] (1.001-1.035) Urine Protein (NEGATIVE) mg/dL Urine Glucose (UA) (NEGATIVE) mg/dL Urine Ketones (NEGATIVE) mg/dL Urine Occult Blood (NEGATIVE) Urine Nitrite (NEGATIVE) Urine Bilirubin (NEGATIVE) Urine Urobilinogen (<2.0) EU/dL Ur Leukocyte Esterase (NEGATIVE) Urine RBC (0-2/HPF) Urine WBC (0-5/HPF) Ur Epithelial Cells (NONE-FEW) Urine Bacteria (NEGATIVE) Urine Mucus (NONE-MOD) Urine HCG, Qual NEGATIVE (NEGATIVE) Meds: Medications Discontinued Medications Generic Name Dose Route Start Last Admin Trade Name Freq PRN Reason Stop Dose Admin Glucagon 1 mg 10/11/18 03:32 10/11/18 03:36 Glucagen IVPUSH 10/11/18 03:33 1 mg ONETIME ONE Administration Sodium Chloride 1,000 mls @ 999 mls/hr 10/11/18 02:19 10/11/18 02:42 Normal Saline IV 10/11/18 03:19 999 mls/hr STAT ONE Administration Departure - Departure Time of Disposition: 04:18 Disposition: Refer to Observation Condition: Fair Clinical Impression: Food impaction of esophagus - Discharge Information Referrals: PCP,None [Primary Care Provider] - Forms: ED Department Discharge
[2018-10-11 03:05] LABS: CHLORIDE,CL 107 mmol/L (98-107); SODIUM,NA 141 mmol/L (136-145)
[2018-10-11] MEDS ORDERED: Glucagon,Human Recombinant 1 MG Vial IVPUSH ONE (03:32)
--- NOTE | 2018-10-11 03:37 | CR ---
Indication: Shortness of breath Technique: Chest 1 view Comparison: October 21, 2011 Findings/Impression: Cardiovascular and mediastinum: Heart size and vasculature are normal in caliber and appearance. Mediastinum is within normal limits. Lungs and pleural space: Lungs are clear. No sign of infiltrate or mass. No sign of pleural effusion. No pneumothorax. Bones and soft tissues: No significant findings. Dictated by Joann Carrillo MD @ Oct 11 2018 3:35AM Signed by Dr. Joann Carrillo @ Oct 11 2018 3:35AM
--- NOTE | 2018-10-11 05:06 | PCM.PREANE ---
Preanesthetic Assessment - Anesthesia/Transfusion/Family Hx Anesthesia History: Prior Anesthesia Without Reaction Family History of Anesthesia Reaction: No Transfusion History: No Prior Transfusion(s) Intubation History: Unknown - Review of Systems General: No Symptoms Pulmonary: No Symptoms Cardiovascular: No Symptoms Gastrointestinal: Difficulty Swallowing Neurological: No Symptoms Other: Reports: None - Physical Assessment NPO Status Date: 10/11/18 NPO Status Time: 20:00 O2 Sat by Pulse Oximetry: 100 Respiratory Rate: 18 Vital Signs: Last Vital Signs Temp 36.3 C 10/11/18 04:30 Pulse 70 10/11/18 04:30 Resp 18 10/11/18 04:30 BP 117/72 10/11/18 04:30 Pulse Ox 100 10/11/18 04:30 Height: 1.68 m Weight: 104.326 kg ASA Class: 2E Mental Status: Alert & Oriented x3 Airway Class: Mallampati = 2 Dentition: Reports: Normal Dentition Lungs: Clear to Auscultation Cardiovascular: Regular Rate - Lab Values: Laboratory Last Values WBC 6.71 K/uL (4.0-11.0) 10/11/18 02:35 RBC 4.89 M/uL (4.30-5.90) 10/11/18 02:35 Hgb 14.5 g/dL (12.0-16.0) 10/11/18 02:35 Hct 43.1 % (36.0-46.0) 10/11/18 02:35 MCV 88.1 fL (80.0-98.0) 10/11/18 02:35 MCH 29.7 pg (27.0-32.0) 10/11/18 02:35 MCHC 33.6 g/dL (31.0-37.0) 10/11/18 02:35 RDW Std Deviation 41.6 fl (28.0-62.0) 10/11/18 02:35 RDW Coeff of Omari 13 % (11.0-15.0) 10/11/18 02:35 Plt Count 245 K/uL (150-400) 10/11/18 02:35 MPV 10.60 fL (7.40-12.00) 10/11/18 02:35 Neut % (Auto) 63.4 % (48.0-80.0) 10/11/18 02:35 Lymph % (Auto) 25.5 % (16.0-40.0) 10/11/18 02:35 [place] % (Auto) 7.7 % (0.0-15.0) 10/11/18 02:35 Eos % (Auto) 3.1 % (0.0-7.0) 10/11/18 02:35 Baso % (Auto) 0.3 % (0.0-1.5) 10/11/18 02:35 Neut # (Auto) 4.3 K/uL (1.4-5.7) 10/11/18 02:35 Lymph # (Auto) 1.7 K/uL (0.6-2.4) 10/11/18 02:35 [place] # (Auto) 0.5 K/uL (0.0-0.8) 10/11/18 02:35 Eos # (Auto) 0.2 K/uL (0.0-0.7) 10/11/18 02:35 Baso # (Auto) 0.0 K/uL (0.0-0.1) 10/11/18 02:35 Nucleated RBC % 0.0 /100WBC 10/11/18 02:35 Nucleated RBCs # 0 K/uL 10/11/18 02:35 Sodium 141 mmol/L (136-145) 10/11/18 02:35 Potassium 4.0 mmol/L (3.5-5.1) 10/11/18 02:35 Chloride 107 mmol/L (98-107) 10/11/18 02:35 Carbon Dioxide 28.1 mmol/L (21.0-32.0) 10/11/18 02:35 BUN 13 mg/dL (7.0-18.0) 10/11/18 02:35 Creatinine 0.8 mg/dL (0.6-1.0) 10/11/18 02:35 Est Cr Clr Drug Dosing 98.01 mL/min 10/11/18 02:35 Estimated GFR (MDRD) > 60.0 ml/min 10/11/18 02:35 Glucose 114 mg/dL (74-106) H 10/11/18 02:35 Calcium 8.5 mg/dL (8.5-10.1) 10/11/18 02:35 Total Bilirubin 0.4 mg/dL (0.2-1.0) 10/11/18 02:35 AST 23 IU/L (15-37) 10/11/18 02:35 ALT 23 IU/L (14-63) 10/11/18 02:35 Alkaline Phosphatase 47 U/L (46-116) 10/11/18 02:35 Total Protein 7.6 g/dL (6.4-8.2) 10/11/18 02:35 Albumin 3.7 g/dL (3.4-5.0) 10/11/18 02:35 Globulin 3.9 g/dL (2.6-4.0) 10/11/18 02:35 Albumin/Globulin Ratio 0.9 (0.9-1.6) 10/11/18 02:35 Lipase 166 U/L (73-393) 10/11/18 02:35 Urine Color YELLOW 10/11/18 02:40 Urine Appearance SLT CLOUDY 10/11/18 02:40 Urine pH 6.0 (5.0-8.0) 10/11/18 02:40 Ur Specific [place] >= 1.030 (1.001-1.035) 10/11/18 02:40 Urine Protein NEGATIVE mg/dL (NEGATIVE) 10/11/18 02:40 Urine Glucose (UA) NEGATIVE mg/dL (NEGATIVE) 10/11/18 02:40 Urine Ketones NEGATIVE mg/dL (NEGATIVE) 10/11/18 02:40 Urine Occult Blood SMALL (NEGATIVE) H 10/11/18 02:40 Urine Nitrite NEGATIVE (NEGATIVE) 10/11/18 02:40 Urine Bilirubin NEGATIVE (NEGATIVE) 10/11/18 02:40 Urine Urobilinogen 0.2 EU/dL (<2.0) 10/11/18 02:40 Ur Leukocyte Esterase NEGATIVE (NEGATIVE) 10/11/18 02:40 Urine RBC NONE SEEN (0-2/HPF) 10/11/18 02:40 Urine WBC 0-2 (0-5/HPF) 10/11/18 02:40 Ur Epithelial Cells MODERATE (NONE-FEW) 10/11/18 02:40 Urine Bacteria 1+ (NEGATIVE) H 10/11/18 02:40 Urine Mucus LIGHT (NONE-MOD) 10/11/18 02:40 Urine HCG, Qual NEGATIVE (NEGATIVE) 10/11/18 02:40 - Allergies Allergies/Adverse Reactions: Allergies Allergy/AdvReac Type Severity Reaction Status Date / Time amoxicillin Allergy Cannot Verified 10/11/18 02:22 Remember - Anesthesia Plan Pre-Op Medication Ordered: None - Acknowledgements Anesthesia Type Planned: General Anesthesia Pt an Appropriate Candidate for the Planned Anesthesia: Yes Alternatives and Risks of Anesthesia Discussed w Pt/Guardian: Yes Pt/Guardian Understands and Agrees with Anesthesia Plan: Yes Additional Comments: Discussed. RSI. Acceptable patient. 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 OB/BYN History: & D/C Musculoskeletal History: Reports: Fracture Other Musculoskeletal History: hx of fx toe Neurological History: Reports: None Psychiatric History: Reports: None Endocrine/Metabolic History: Reports: Obesity/BMI 30+ Hematologic History: Reports: None Immunologic History: Reports: None Oncologic (Cancer) History: Reports: None Dermatologic History: Reports: None - Infectious Disease History Infectious Disease History: Reports: None - Past Surgical History Head Surgeries/Procedures: Reports: None HEENT Surgical History: Reports: Myringotomy w Tube(s) Cardiovascular Surgical History: Reports: None Respiratory Surgical History: Reports: None GI Surgical History: Reports: None Female Surgical History: Reports: Section, D&C, Tubal Ligation Endocrine Surgical History: Reports: None Neurological Surgical History: Reports: None Musculoskeletal Surgical History: Reports: None Oncologic Surgical History: Reports: None Dermatological Surgical History: Reports: None - SUBSTANCE USE Smoking Status *Q: Never Smoker Second Hand Smoke Exposure: No Recreational Drug Use History: No - HOME MEDS Home Medications: Home Meds . [No Known Home Meds] 03/16/18 [History] - CURRENT (IN HOUSE) MEDS Current Meds: Current Medications Discontinued Medications Glucagon (Glucagen) 1 mg IVPUSH ONETIME ONE Stop: 10/11/18 03:33 Last Admin: 10/11/18 03:36 Dose: 1 mg Sodium Chloride (Normal Saline) 1,000 mls @ 999 mls/hr IV STAT ONE Stop: 10/11/18 03:19 Last Admin: 10/11/18 02:42 Dose: 999 mls/hr
--- NOTE | 2018-10-11 05:06 | PCM.SN ---
- Free Text/Narrative Note: pt seen, chart reviewed; food stuck, cannot swallow saliva; to or for egd w fb retrieval; rb dw pt re bleeding/infection/sore throat/postop course; pt concur and proceed
[2018-10-11] MEDS ORDERED: Ondansetron 4 MG/2 ML SDV ONE (05:10)
[2018-10-11] MEDS ORDERED: fentaNYL 100 MCG/2 ML SDV ONE (05:11)
[2018-10-11] MEDS ORDERED: Propofol 200 MG/20 ML SDV ONE (05:11)
[2018-10-11] MEDS ORDERED: Glycopyrrolate 0.2 MG/ML SDV ONE (05:11)
[2018-10-11] MEDS ORDERED: Lactated Ringers 1,000 ML IV SCH ×2 (05:15→05:45)
--- NOTE | 2018-10-11 05:34 | PCM.OPNOTE ---
- General Post-Op/Procedure Note Date of Surgery/Procedure: 10/11/18 Operative Procedure(s): egd w fb retrieval Findings: see dict [id number] Pre Op Diagnosis: food stuck Post-Op Diagnosis: Same Anesthesia Technique: General ET Tube Primary Surgeon: Dylan Jose Complications: None Condition: Fair
[2018-10-11] MEDS ORDERED: Acetaminophen/oxyCODONE 325-5 MG Tab PO PRN (05:36)
--- NOTE | 2018-10-11 06:00 | PCM.POSTAN ---
POST ANESTHESIA ASSESSMENT - MENTAL STATUS Mental Status: Alert - VITAL SIGNS Pulse Rate: 83 SaO2: 95 Resp Rate: 14 Blood Pressure: 109/66 Temperature: 37.0 C - RESPIRATORY Respiratory Status: Respiratory Rate WNL - CARDIOVASCULAR CV Status: Pulse Rate WNL - GASTROINTESTINAL GI Status: No Symptoms - PAIN Pain Score: 1 (Throat sore) - POST OP HYDRATION Hydration Status: Adequate & Stable (Ready for Transfer)
--- NOTE | 2018-10-11 10:30 | CONS ---
DATE OF CONSULTATION: 10/11/2018 DATE OF : 1990 PRIMARY CARE PHYSICIAN: None PCP ADMISSION DIAGNOSIS: Foreign body stuck. This is a consult from Dr. Ge. CONCERNING QUESTION: Foreign body stuck. HISTORY OF PRESENT ILLNESS: The patient is a 28-year-old lady with numerous times of food stuck in the throat per patient and every time she will make herself vomit and it will come out, and this time it is not, and the patient cannot swallow saliva and requests to have EGD study that the patient never had one done. Food was stuck like a piece of steak about 12 hours ago and still stuck. ALLERGIES: Please refer to nursing for details. MEDICATIONS: Please refer to nursing for details. PAST MEDICAL HISTORY: Significant for no diabetes, OR, CVA, or hypertension. PAST SURGICAL HISTORY: x3. FAMILY HISTORY: Noncontributory. REVIEW OF SYSTEMS: Same as history of present illness. PHYSICAL EXAMINATION: GENERAL: A very pleasant lady, smiled to the doctor, in no acute distress, and continues to complain "cannot swallow saliva." HEENT: Normocephalic, atraumatic. Sclerae are anicteric. LUNGS: Clear to auscultation. HEART: Regular rate and rhythm. ABDOMEN: Soft, nondistended. No pulsating tender midline abdominal structure, and a little bit of subjective tenderness in the epigastrium. IMPRESSION: Food stuck in the throat. Would benefit from a timely EGD with foreign body retrieval. Risks and benefits discussed with the patient including bleeding, infection, and possible perforation. The patient concurred to proceed as planned. PRECIOUS / TERESA /[id number]
[2018-10-11 10:35] VITALS: BP 109/66
--- NOTE | 2018-10-11 10:35 | PCM48HPAN ---
Post Anesthesia Note - EVALUATION WITHIN 48HRS OF ANESTHETIC Vital Signs in Normal Range: Yes Patient Participated in Evaluation: Yes Respiratory Function Stable: Yes Airway Patent: Yes Cardiovascular Function Stable: Yes Hydration Status Stable: Yes Pain Control Satisfactory: Yes Nausea and Vomiting Control Satisfactory: Yes Mental Status Recovered: Yes Pulse Rate: 83 Resp Rate: 18 Temperature: 37.0 C Blood Pressure: 109/66 - COMMENTS/OBSERVATIONS Free Text/Narrative:: Doing well. Ready for discharge.
--- NOTE | 2018-10-11 11:35 | OR ---
SURGEON: Dylan Jose MD DATE OF PROCEDURE: 10/11/2018 PREOPERATIVE DIAGNOSIS: Food stuck in throat. POSTOPERATIVE DIAGNOSIS: Food stuck in throat. PROCEDURE PERFORMED: EGD with foreign body extraction. PRIMARY SURGEON: Dr. Jose. COMPLICATION: None. FINDING: A piece of meat stuck in the GE junction and it was pushed into stomach. DESCRIPTION OF PROCEDURE: The patient was taken to the endoscopy room, put in supine position. Upon induction of general endotracheal anesthesia, a well-lubricated [facility] EGD scope was gently inserted through the oropharynx and through the esophagus and entered into the GE junction at 40 and noted piece of meat stuck there. With gentle push, the meat fell into the stomach. Stomach did not seem to have any etiology, and stomach rugae is normal in appearance. No bile. No blood. No ulcer. Duodenum is grossly normal. Retroflexed look at the fundus of stomach, there is no hiatal hernia, and during the procedure, whole of the esophagus did not experience any narrow stricture, but the GE junction quite inflamed. The patient would benefit from a full liquid diet for 2 days before proceeding with solid food. The scope retrieved while sucking out air. The patient tolerated procedure well. There were no intraoperative complications. Dr. Jose was present throughout the procedure. PRECIOUS / TERESA /[id number]
== END 2018-10-11 10:24 | disposition home or self-care (01) ==
LOC: MW.ED 02:14 → MW.SDS 04:56 → MW.MS 05:00 → MW.SDS 10:24
PROVIDERS: ATTEND Surgery
DX: T18.128A Food in esophagus causing other injury, initial encounter (principal); I50.9 Heart failure, unspecified; Z88.0 Allergy status to penicillin
CPT/HCPCS: 36415; 43247; 71045; 80053; 81001; 81025; 83690; 85025; 96361; 96374; 99285; A9270; J0330; J1610; J2001; J2405; J2704; J3010; J3490; J7040; J7120; 00731

== ENCOUNTER 2022-01-17 08:00 | Emergency (ER) | payer BC | END 2022-01-17 18:54 | disposition left against medical advice (07) | LOC: MW.ED 08:00 | DX: Z53.21 Procedure and treatment not carried out due to patient leaving prior to being seen by health care provider (principal) ==

== ENCOUNTER 2022-01-18 07:39 | Emergency (ER) | payer BC ==
[2022-01-18] MEDS ORDERED: Lidocaine 5% 700 MG Patch TRDERM ONE (07:40)
[2022-01-18] MEDS ORDERED: Cyclobenzaprine 10 MG Tab PO ONE (07:40)
[2022-01-18] MEDS ORDERED: oxyCODONE 5 MG Tab PO ONE (07:40)
== END 2022-01-18 12:20 | disposition home or self-care (01) ==
LOC: MW.ED 07:39
DX: M54.50 Low back pain, unspecified (principal); Z98.890 Other specified postprocedural states
CPT/HCPCS: 72100; 99283; A9270

== ENCOUNTER 2022-02-03 12:55 | Emergency (ER) | payer BC, MEDICAID ==
[2022-02-03 13:33] VITALS: BP 135/75; PULSE 78
== END 2022-02-03 13:30 | disposition home or self-care (01) ==
LOC: MW.ED 12:55
DX: R59.0 Localized enlarged lymph nodes (principal); Z88.0 Allergy status to penicillin
CPT/HCPCS: 99283

== ENCOUNTER 2022-02-22 18:33 | Emergency (ER) | payer BC ==
[2022-02-22] MEDS ORDERED: methylPREDNISolone Sodium Succinate 125 MG/2 ML SDV IVPUSH ONE (18:36)
[2022-02-22] MEDS ORDERED: Albuterol/Ipratropium 3.0-0.5 MG/3 ML Neb Soln NEB ONE ×2 (18:36→19:40)
[2022-02-22] MEDS ORDERED: Albuterol 8 GM Inhaler INH ONE (19:40)
[2022-02-22 20:03] VITALS: BP 128/79; PULSE 89
== END 2022-02-22 20:03 | disposition home or self-care (01) ==
LOC: MW.ED 18:33
DX: J45.909 Unspecified asthma, uncomplicated (principal); I50.9 Heart failure, unspecified; E66.9 Obesity, unspecified; Z68.36 Body mass index [BMI] 36.0-36.9, adult; Z88.0 Allergy status to penicillin; Z79.899 Other long term (current) drug therapy
CPT/HCPCS: 96374; 99284; A9270; J2930; J7620-GY

== ENCOUNTER 2023-07-21 14:14 | Emergency (ER) | payer BC ==
[2023-07-21] MEDS: Sodium Chloride 0.9% 2.5 ML Syringe FLUSH PRN (14:35)
[2023-07-21] MEDS: Sodium Chloride 0.9% 10 ML Syringe FLUSH PRN (14:36)
[2023-07-21 14:41] LABS: BASOPHILS ABSOLUTE AUTO 0.03 K/uL (0.00-0.20); BASOPHILS PERCENT AUTO 0.5 % (0.0-1.0); EOSINOPHILS ABSOLUTE AUTO 0.24 K/uL (0.00-0.45); EOSINOPHILS PERCENT AUTO 4.2 % (0.0-6.0); HEMATOCRIT 40.5 % (37.0-47.0); HEMOGLOBIN 13.7 g/dL (12.0-16.0); IMMATURE GRAN ABSOLUTE AUTO 0.02 K/uL (0.00-0.05); IMMATURE GRAN PERCENT AUTO 0.3 % (0.0-0.4); LYMPHOCYTES ABSOLUTE AUTO 1.35 K/uL (1.00-4.80); LYMPHOCYTES PERCENT AUTO 23.4 % (24.0-44.0); MEAN CORPUSCULAR HEMOGLOBIN 29.8 pg (28.0-32.0); MEAN CORPUSCULAR HGB CONC 33.8 g/dL (32.0-36.0); MEAN PLATELET VOLUME 10.3 fL (9.4-12.3); MONOCYTES PERCENT AUTO 6.9 % (0.0-8.0); NEUTROPHILS ABSOLUTE AUTO 3.73 K/uL (1.80-7.70); NEUTROPHILS PERCENT AUTO 64.7 % (41.0-71.0); PLATELET COUNT,PLT 268 K/uL (150-400); WHITE BLOOD CELL COUNT,WBC 5.77 K/uL (3.9-11.3)
[2023-07-21 14:51] LABS: APPEARANCE,URINE CLEAR; BILIRUBIN,URINE NEGATIVE (NEGATIVE); COLOR,URINE YELLOW; GLUCOSE,URINE NEGATIVE (NEGATIVE); KETONES,URINE NEGATIVE (NEGATIVE); LEUKOCYTE ESTERASE,URINE NEGATIVE (NEGATIVE); NITRITE,URINE NEGATIVE (NEGATIVE); OCCULT BLOOD,URINE NEGATIVE (NEGATIVE); PROTEIN,URINE NEGATIVE (NEGATIVE); UROBILINOGEN,URINE 0.2 EU/dL (<2.0)
[2023-07-21 15:06] LABS: ALBUMIN 3.8 g/dL (3.4-5.0); BILIRUBIN TOTAL 0.3 mg/dL (0.2-1.0); CALCIUM 9.2 mg/dL (8.5-10.1); CARBON DIOXIDE,CO2 27.9 mmol/L (21.0-32.0); EST CRCL DRUG DOSING (CG) 75.61 mL/min; POTASSIUM,K 3.8 mmol/L (3.5-5.1); PROTEIN TOTAL,TP 7.6 g/dL (6.4-8.2)
[2023-07-21] MEDS: Sodium Chloride 0.9% 1,000 ML IV STA (15:19)
[2023-07-21] MEDS: Morphine 4 MG/ML Syringe IVPUSH ONE (15:19)
[2023-07-21] MEDS: Ondansetron 4 MG/2 ML SDV IVPUSH STA (15:30)
[2023-07-21] MEDS: Aluminum Hydroxide/Magnesium Hydroxide/Simethicone XS Susp 30 ML Cup PO ONE (15:30)
[2023-07-21 16:42] VITALS: BP 128/72; PULSE 75
[2023-07-21] MEDS: Prochlorperazine 10 MG/2 ML SDV IVPUSH ONE (16:45)
== END 2023-07-21 17:16 | disposition left against medical advice (07) ==
LOC: MW.ED 14:14
DX: R10.11 Right upper quadrant pain (principal); R11.10 Vomiting, unspecified; E66.9 Obesity, unspecified; I50.9 Heart failure, unspecified; Z88.0 Allergy status to penicillin
CPT/HCPCS: 36415; 74018; 76705; 80053; 81003; 83690; 84703; 85025; 96361; 96374; 96375; 99284; A9270; J0780; J2270; J2405; J3490; J7030